=== PATIENT | female | born 1965 | race Caucasian/White ===

== ENCOUNTER 2016-11-27 15:55 | Emergency (ER) | payer MEDICAID ==
[~2016-11-27] VITALS: Ht 157.5 cm; Wt 106.6 kg
[~2016-11-27 15:55] MED LIST: AGM875T PO; ALB0.5V INH; ALBU0.8322 NEB; ALBU8.5HRX INH; ATOR10TA PO; BUDE6HFA INH; CELE-63; CEPH500C PO; CETI10TA17 PO; CLCX200C PO; DOCQLACE; DOCU-161 PO; DPH25C PO; ESCI20TA2 PO; ESCI20TA38 PO; EST1.25T PO; ESTR1TAB24; ESTR1TAB50 PO; EZET1TAB44 PO; FENO145T20; FERR-57 PO; FLT05NA16 NSEACH; FLUT16SP22 NS; GEMF600T3 PO; LANS30TA4 PO; LEVO750T24 PO; METO-354 PO; METO100T5 PO; METO10TA3 PO; METO5TAB2; METO5TAB2 PO; MNTL10T PO; MONT10TA24; NF-PREM2.5 PO; OMEG-105; OMEG-160 PO; PANT40TA PO; PNT40TEC PO; PRD10T PO; PRED20TA PO; SCR1T PO; TRAM50TA2 PO; ZIPR60CA6 PO; ZIPR80CA9 PO; ZPR80C PO
[2016-11-27] MEDS ORDERED: NS IV 1000 ML 1,000 ML IV ONE (16:09)
--- NOTE | 2016-11-27 16:18 | ED Abdominal Pain ---
General Chief Complaint: Abdominal/GI Problems Stated Complaint: STOMACH PAIN/CP Nursing Triage Note: pt reports constant abd pain that radiates, worsening with breathing, chest discomfort, nausea over the last 48 hours. states started a new stomach medication recently. pt brought in ems Sepsis Screen: No Definite Risk Source of Information: Patient Exam Limitations: No Limitations (MORENA CARTER MD) History of Present Illness Time Seen By Provider: 16:04 Initial Comments Here with report of abdominal pain that has been worse over the last several days and certainly over the last 48 hours. Also complains of lower chest discomfort when she takes a deep breath that has been persistent with breathing over the last 48 hours as well. She was started on a new medicine from the clinic but doesn't know what it is and states that she doesn't want to take it anymore because it is making her feel very bad. She is eating and drinking okay. Denies diarrhea or dysuria. Pain is to the lower abdomen bilateral and sharp and changes from side to side and radiates upward. Timing/Duration: 2-3 Days Severity/Quality: Moderate, Sharp Location: RLQ, LLQ Radiation: RUQ, LUQ Modifying Factors: Worsens With Breathing, Improves With Eating, Improves With Resting Associated Symptoms: No Back Pain, No Chest Pain, No Fever/Chills, No Nausea/ Vomiting, No Swelling/Mass in Abdomen, No Weakness (MORENA CARTER MD) Allergies and Home Medications Allergies Coded Allergies: aripiprazole (Verified Allergy, Mild, 05/22/09) influenza virus vacc,specific (Verified Allergy, Unknown, 12/29/13) sucralfate (Verified Allergy, Unknown, 12/29/13) Home Medications Albuterol Sulfate 2.5 Mg/3 Ml Solution 2.5 MG NEB Q4H PRN PRN WHEEZING (Reported ) Atorvastatin Calcium 10 Mg Tablet #30 10 MG PO DAILY Prescribed by: SHARON GARRETT on 08/05/15 1003 Budesonide/Formoterol Fumarate 10.2 Gm Hfa.aer.ad 2 PUFF INH BID PRN PRN SHORTNESS OF BREATH (Reported) Celecoxib 200 Mg Capsule 200 MG PO DAILY (Reported) Cetirizine Hcl 10 Mg Tablet 10 MG PO DAILY @ 1200 (Reported) Docusate Sodium 100 Mg Capsule 100 MG PO HS (Reported) Escitalopram Oxalate 20 Mg Tablet 20 MG PO DAILY (Reported) Metoclopramide Hcl 5 Mg Tablet 5 MG PO QID (Reported) Metoprolol Succinate 100 Mg Tab.sr.24h 100 MG PO DAILY (Reported) Montelukast Sodium 10 Mg Tablet 10 MG PO HS (Reported) [place]-3/Dha/Epa/Fish Oil 1 Each Capsule 1,000 MG PO BID (Reported) Pantoprazole Sodium 40 Mg Tablet.dr 40 MG PO DAILY (Reported) Ziprasidone Hcl 80 Mg Capsule 160 MG PO HS (Reported) TAKES 2 (80MG) CAPSULES AT BEDTIME Review of Systems Constitutional: see HPINo chills, fever EENTM: No Symptoms Reported Respiratory: See HPIDenies Shortness of Air, Denies Wheezing Cardiovascular: No Symptoms Reported Gastrointestinal: See HPI Abdominal PainDenies Nausea, Denies Rectal Bleeding , Denies Vomiting Genitourinary: No Symptoms Reported Musculoskeletal: no symptoms reported Skin: no symptoms reported Psychiatric/Neurological: No Symptoms Reported (MORENA CARTER MD) All Other Systems Reviewed Negative Unless Noted: Yes (MORENA CARTER MD) Past Kfcshwt-Svabse-Sqykxw Hx Patient Social History Alcohol Use: Denies Use Recreational Drug Use: No Smoking Status: Never a Smoker Former Smoker/When Quit: Nov 08, 1979 Recent Foreign Travel: No Contact w/Someone Who Travel: No Recent Infectious Disease Expo: No Recent Hopitalizations: No Physical Abuse Screen: No Sexual Abuse: No (MORENA CARTER MD) Immunizations Up To Date Tetanus Booster (TDap): Unknown Date of Pneumonia Vaccine: Nov 08, 2012 (MORENA CARTER MD) Seasonal Allergies Seasonal Allergies: No (MORENA CARTER MD) Surgeries HX Surgeries: Yes (I&D AFTER MISCARRIAGE, hiatal hernia repair) Surgeries: Abdominal, Gallbladder, Tonsillectomy, Vascular Surgery (MORENA CARTER MD) Respiratory Hx Respiratory Disorders: Yes Respiratory Disorders: Asthma, Chronic Bronchitis (MORENA CARTER MD) Cardiovascular Hx Cardiac Disorders: Yes (History CHF, "irregular heart beat") Cardiac Disorders: Hypertension (MORENA CARTER MD) Neurological Hx Neurological Disorders: Yes (MORENA CARTER MD) Reproductive System : No Hx Reproductive Disorders: No Female Reproductive Disorders: Menstrual Problems (MORENA CARTER MD) Genitourinary Hx Genitourinary Disorders: No Genitourinary Disorders: Kidney Infection, Bladder Infection (MORENA CARTER MD) Gastrointestinal Hx Gastrointestinal Disorders: Yes Gastrointestinal Disorders: Gastroesophageal Reflux (MORENA CARTER MD) Musculoskeletal Hx Musculoskeletal Disorders: Yes Musculoskeletal Disorders: Arthritis, Fractures (MORENA CARTER MD) Endocrine Hx Endocrine Disorders: No (MORENA CARTER MD) HEENT HX ENT Disorders: Yes (WEARS GLASSES, sinusitis) Loss of Vision: Bilateral Hearing Impairment: Denies (MORENA CARTER MD) Cancer Hx Cancer: No (MORENA CARTER MD) Psychosocial Hx Psychiatric Problems: Yes Behavioral Health Disorders: Anxiety, Depression (MORENA CARTER MD) Integumentary HX Skin/Integumentary Disorder: No (HAS SKIN DISEASE NOT SURE BREAKS OUT ONCE IN A WHILE ) (MORENA CARTER MD) Blood Transfusions Hx Blood Disorders: No Adverse Reaction to a Blood Tr: No (MORENA CARTER MD) Reviewed Nursing Assessment Reviewed/Agree w Nursing PMH: Yes (MORENA CARTER MD) Family Medical History Significant Family History: Heart Disease Family Medial History: Alcoholism Cancer Cataract Chest pain Congenital heart disease Congestive heart failure Dementia Family history: Allergy Family history: Alzheimer's disease Family history: Arthritis Family history: Asthma Family history: Cardiovascular disease Family history: Diabetes mellitus Family history: Glaucoma Family history: Hypertension Family history: Thyroid disorder Headache Heart disease History of - anemia History of - respiratory disease Kidney disease Myocardial infarction Psychotic disorder Stroke Visual impairment (MORENA CARTER MD) Family Medial History: Alcoholism Cancer Cataract Chest pain Congenital heart disease Congestive heart failure Dementia Family history: Allergy Family history: Alzheimer's disease Family history: Arthritis Family history: Asthma Family history: Cardiovascular disease Family history: Diabetes mellitus Family history: Glaucoma Family history: Hypertension Family history: Thyroid disorder Headache Heart disease History of - anemia History of - respiratory disease Kidney disease Myocardial infarction Psychotic disorder Stroke Visual impairment No Family History of: Abdominal aortic aneurysm [place]'s disease Aphasia Cystic fibrosis Dysphagia Family history: Breast disease Family history: Coronary thrombosis Family history: Gastrointestinal disease Family history: Osteoporosis Hearing loss Hereditary disease History of - disorder History of drug abuse Human immunodeficiency virus (HIV) seropositivity Hypercholesterolemia Infertile Malignant neoplasm of lung Parkinson's disease Prostate cancer Seizure disorder Tuberculosis (AIXA GONZALEZ) Physical Exam Vital Signs (AIXA GONZALEZ) Vital Signs Capillary Refill : Less Than 3 Seconds (MORENA CARTER MD) General Appearance: WD/WN no apparent distress HEENT: PERRL/EOMI pharynx normal Neck: full range of motion supple Respiratory: lungs clear normal breath sounds Cardiovascular: regular rate, rhythm no murmur Gastrointestinal: non tender soft Extremities: non-tender no pedal edema Back: normal inspection no CVA tenderness no vertebral tenderness Neurologic/Psychiatric: alert oriented x 3 Skin: normal color warm/dry (MORENA CARTER MD) Progress/Results/Core Measures Results/Orders Lab Results Laboratory Tests Test 11/27/16 16:19 11/27/16 17:51 Range/Units Urine Bacteria NONE /HPF Urine Bilirubin NEGATIVE NEGATIVE Urine Casts NONE /LPF Urine Clarity CLEAR Urine Color YELLOW Urine Crystals NONE /LPF Urine Culture Indicated NO Urine Glucose (UA) NEGATIVE NEGATIVE Urine Ketones NEGATIVE NEGATIVE Urine Leukocyte Esterase 2+ H NEGATIVE Urine Mucus NEGATIVE /LPF Urine Nitrite NEGATIVE NEGATIVE Urine Protein 2+ H NEGATIVE Urine RBC NONE /HPF Urine RBC (Auto) NEGATIVE NEGATIVE Urine Specific [place] 1.010 L 1.016-1.022 Urine Squamous Epithelial Cells 5-10 /HPF Urine Urobilinogen NORMAL NORMAL MG/DL Urine WBC 2-5 /HPF Urine pH 7 5-9 Alanine Aminotransferase (ALT/SGPT) 100 H 0-55 U/L Albumin 3.5 3.2-4.5 G/DL Alkaline Phosphatase 428 H 40-136 U/L Anion Gap 11 5-14 MMOL/L Aspartate Amino Transf (AST/SGOT) 82 H 5-34 U/L BUN/Creatinine Ratio 11 Basophils # (Auto) 0.0 0.0-0.1 10^3/uL Basophils (%) (Auto) 0 0-10 % Blood Urea Nitrogen 8 7-18 MG/DL Calcium Level 8.5 8.5-10.1 MG/DL Carbon Dioxide Level 21 21-32 MMOL/L Chloride Level 108 H 98-107 MMOL/L Creatinine 0.72 0.60-1.30 MG/DL Eosinophils # (Auto) 0.2 0.0-0.3 10^3/uL Eosinophils (%) (Auto) 3 0-10 % Estimat Glomerular Filtration Rate > 60 Glucose Level 125 H 70-105 MG/DL Hematocrit 41 35-52 % Hemoglobin 13.6 11.5-16.0 G/DL Lipase 82 H 8-78 U/L Lymphocytes # (Auto) 2.7 1.0-4.0 X 10^3 Lymphocytes (%) (Auto) 41 12-44 % Magnesium Level 1.7 L 1.8-2.4 MG/DL Mean Corpuscular Hemoglobin 30 25-34 PG Mean Corpuscular Hemoglobin Concent 34 32-36 G/DL Mean Corpuscular Volume 88 80-99 FL Mean Platelet Volume 10.6 H 7.4-10.4 FL Monocytes # (Auto) 0.4 0.0-1.0 X 10^3 Monocytes (%) (Auto) 7 0-12 % Neutrophils # (Auto) 3.3 1.8-7.8 X 10^3 Neutrophils (%) (Auto) 50 42-75 % Platelet Count 265 130-400 10^3/uL Potassium Level 3.7 3.6-5.0 MMOL/L Red Blood Count 4.59 4.35-5.85 10^6/uL Red Cell Distribution Width 12.9 10.0-14.5 % Sodium Level 140 135-145 MMOL/L Total Bilirubin 0.5 0.1-1.0 MG/DL Total Protein 7.2 6.4-8.2 G/DL Troponin I < 0.30 <0.30 NG/ML White Blood Count 6.7 4.3-11.0 10^3/uL (AIXA GONZALEZ) Lab Results Laboratory Tests Test 11/27/16 16:19 11/27/16 17:51 Range/Units Urine Bacteria NONE /HPF Urine Bilirubin NEGATIVE NEGATIVE Urine Casts NONE /LPF Urine Clarity CLEAR Urine Color YELLOW Urine Crystals NONE /LPF Urine Culture Indicated NO Urine Glucose (UA) NEGATIVE NEGATIVE Urine Ketones NEGATIVE NEGATIVE Urine Leukocyte Esterase 2+ H NEGATIVE Urine Mucus NEGATIVE /LPF Urine Nitrite NEGATIVE NEGATIVE Urine Protein 2+ H NEGATIVE Urine RBC NONE /HPF Urine RBC (Auto) NEGATIVE NEGATIVE Urine Specific [place] 1.010 L 1.016-1.022 Urine Squamous Epithelial Cells 5-10 /HPF Urine Urobilinogen NORMAL NORMAL MG/DL Urine WBC 2-5 /HPF Urine pH 7 5-9 Alanine Aminotransferase (ALT/SGPT) 100 H 0-55 U/L Albumin 3.5 3.2-4.5 G/DL Alkaline Phosphatase 428 H 40-136 U/L Anion Gap 11 5-14 MMOL/L Aspartate Amino Transf (AST/SGOT) 82 H 5-34 U/L BUN/Creatinine Ratio 11 Basophils # (Auto) 0.0 0.0-0.1 10^3/uL Basophils (%) (Auto) 0 0-10 % Blood Urea Nitrogen 8 7-18 MG/DL Calcium Level 8.5 8.5-10.1 MG/DL Carbon Dioxide Level 21 21-32 MMOL/L Chloride Level 108 H 98-107 MMOL/L Creatinine 0.72 0.60-1.30 MG/DL Eosinophils # (Auto) 0.2 0.0-0.3 10^3/uL Eosinophils (%) (Auto) 3 0-10 % Estimat Glomerular Filtration Rate > 60 Glucose Level 125 H 70-105 MG/DL Hematocrit 41 35-52 % Hemoglobin 13.6 11.5-16.0 G/DL Lipase 82 H 8-78 U/L Lymphocytes # (Auto) 2.7 1.0-4.0 X 10^3 Lymphocytes (%) (Auto) 41 12-44 % Magnesium Level 1.7 L 1.8-2.4 MG/DL Mean Corpuscular Hemoglobin 30 25-34 PG Mean Corpuscular Hemoglobin Concent 34 32-36 G/DL Mean Corpuscular Volume 88 80-99 FL Mean Platelet Volume 10.6 H 7.4-10.4 FL Monocytes # (Auto) 0.4 0.0-1.0 X 10^3 Monocytes (%) (Auto) 7 0-12 % Neutrophils # (Auto) 3.3 1.8-7.8 X 10^3 Neutrophils (%) (Auto) 50 42-75 % Platelet Count 265 130-400 10^3/uL Potassium Level 3.7 3.6-5.0 MMOL/L Red Blood Count 4.59 4.35-5.85 10^6/uL Red Cell Distribution Width 12.9 10.0-14.5 % Sodium Level 140 135-145 MMOL/L Total Bilirubin 0.5 0.1-1.0 MG/DL Total Protein 7.2 6.4-8.2 G/DL Troponin I < 0.30 <0.30 NG/ML White Blood Count 6.7 4.3-11.0 10^3/uL (MORENA CARTER MD) Medications Given in ED (AIXA GONZALEZ) Medications Given in ED Current Medications Medications Dose Ordered Sig/Elias Route Start Time Stop Time Status Last Admin Dose Admin Sodium Chloride 1,000 ml @ 0 mls/hr Q0M ONCE IV 11/27/16 16:09 11/27/16 16:11 DC 11/27/16 17:11 0 MLS/HR (MORENA CARTER MD) Vital Signs/I&O (AIXA GONZALEZ) Blood Pressure Mean: 128 Progress Note : Progress Note Seen and evaluated. IV by EMS. Labs, chest x-ray, EKG and normal saline 1 L bolus ordered. Monitor patient. 1900: No significant findings currently. We will get CT abdomen and pelvis to rule out intra-abdominal pathology. (MORENA CARTER MD) ECG Initial ECG Impression Date: Nov 27, 2016 Initial ECG Impression Time: 18:44 Initial ECG Rate: 63 Initial ECG Rhythm: Normal Sinus Comment Sinus rhythm with normal axis. No evidence of ST elevation FL. Similar to previous08/05/15. Interpreted by me. (MORENA CARTER MD) Diagnostic Imaging Diagonstic Imaging: Xray Plain Films/CT/US/NM/MRI: chest Comments NAME: VIJAY [facility]KS [facility] REC#: [id number] PT STATUS: REG ER : 1965 PHYSICIAN: MORENA CARTER MD ADMIT DATE: 11/27/16/ER Signed Date of Exam: 11/27/16 CHEST 1 VIEW, AP/PA ONLY PROCEDURE: Chest 1 view, AP/PA only. INDICATION: Chest pain. COMPARISON: 09/30/2015. FINDINGS: No focal airspace disease in the visualized lungs. Please note that the posterior lower lobes are poorly evaluated by portable radiography. No pleural effusion or pneumothorax. Stable cardiomediastinal silhouette, with mild tortuosity of the ascending aorta resulting in convex lateral border of the mediastinum. IMPRESSION: No acute cardiopulmonary process by portable radiography. Dictated by: Dictated on workstation # [id number] Dict: 11/27/16 1703 Trans: 11/27/16 1717 [facility] [id number] Interpreted by: ANGI PERALTA MD Electronically signed by:ANGI PERALTA MD 11/27/16 3217 (MORENA CARTER MD) Diagonstic Imaging: CT Plain Films/CT/US/NM/MRI: abdomen, pelvis Comments FINDINGS: The liver demonstrates mild fatty infiltration. No acute abnormality is appreciated. There is evidence of previous cholecystectomy. The spleen is unremarkable. The pancreas, adrenal glands demonstrate no acute abnormality. The kidneys are unremarkable. There is no ascites or free air within the abdomen. There is diffuse diverticular disease. No acute diverticulitis is appreciated. The stomach is filled with debris. There are findings of mild constipation. The appendix is unremarkable. Within the visualized lung bases, no acute abnormality is appreciated. The osseous structures demonstrate no evidence for acute abnormality. Mild degenerative findings noted in the lower lumbar spine. IMPRESSION: 1. No acute process in the abdomen or pelvis with incidental findings as discussed above. Diverticulosis is noted but no evidence for acute diverticulitis seen at this time. Dictated on workstation # [id number] Reviewed: Reviewed by Me (radiology report reviewed by me) (AIXA GONZALEZ) Departure Communication Progress Notes Patient seen and evaluated. All laboratory and diagnostic findings discussed with the patient. Patient reports feeling better at this time with medications given. Plan for discharge to home. Patient instructed to follow-up with her primary care physician for recheck as an outpatient and to call their office for appointment time. Return precautions were discussed with the patient as described in the discharge instructions of this report. Patient voices understanding and agrees with the treatment plan. Patient seen and evaluated with Dr. Carter. (AIXA GONZALEZ) Impression Impression: Primary Impression: Abdominal pain Disposition: HOME, SELF-CARE Condition: Improved Departure-Patient Inst. Decision time for Depature: 20:08 (AIXA GONZALEZ) Referrals: LEIGH ANN LOW DO (PCP) Primary Care Physician KRYSTYNA CHANCE (Family) Primary Care Physician Patient Instructions: Acute Abdomen (Belly Pain), Adult (DC) Add. Discharge Instructions: All discharge instructions reviewed with patient and/or family. Voiced understanding. Continue usual home medications. Follow up with Rehana harper APRN for discussion of new medication. Take the new medication bottle with you at the time of appointment. Call Wednesday morning to make an appointment. Drink plenty of fluids. Return to the emergency department for worsened pain, vomiting, vomiting blood, rectal bleeding, abdominal swelling, fever, chest pain , or any other concerns. MORENA CARTER MD Nov 27, 2016 16:18 AIXA GONZALEZ Nov 27, 2016 20:09 Interpreted by: ANGI PERALTA MD Electronically signed by:ANGI PERALTA MD 11/27/16 7526 (MORENA CARTER MD) Diagonstic Imaging: CT Plain Films/CT/US/NM/MRI: abdomen, pelvis Comments FINDINGS: The liver demonstrates mild fatty infiltration. No acute abnormality is appreciated. There is evidence of previous cholecystectomy. The spleen is unremarkable. The pancreas, adrenal glands demonstrate no acute abnormality. The kidneys are unremarkable. There is no ascites or free air within the abdomen. There is diffuse diverticular disease. No acute diverticulitis is appreciated. The stomach is filled with debris. There are findings of mild constipation. The appendix is unremarkable. Within the visualized lung bases, no acute abnormality is appreciated. The osseous structures demonstrate no evidence for acute abnormality. Mild degenerative findings noted in the lower lumbar spine. IMPRESSION: 1. No acute process in the abdomen or pelvis with incidental findings as discussed above. Diverticulosis is noted but no evidence for acute diverticulitis seen at this time. Dictated on workstation # [id number] Reviewed: Reviewed by Me (radiology report reviewed by me) (AIXA GONZALEZ) Departure Impression Impression: Primary Impression: Abdominal pain Disposition: HOME, SELF-CARE Condition: Improved Departure-Patient Inst. Decision time for Depature: 20:08 (AIXA GONZALEZ) Referrals: LEIGH ANN LOW DO (PCP) Primary Care Physician KRYSTYNA CHANCE (Family) Primary Care Physician Patient Instructions: Acute Abdomen (Belly Pain), Adult (DC) Add. Discharge Instructions: All discharge instructions reviewed with patient and/or family. Voiced understanding. Continue usual home medications. Follow up with Rehana harper APRN for discussion of new medication. Take the new medication bottle with you at the time of appointment. Call Wednesday morning to make an appointment. Drink plenty of fluids. Return to the emergency department for worsened pain, vomiting, vomiting blood, rectal bleeding, abdominal swelling, fever, chest pain , or any other concerns. MORENA CARTER MD Nov 27, 2016 16:18 AIXA GONZALEZ Nov 27, 2016 20:09
[2016-11-27 16:25] LABS: BILIRUBIN,URINE NEGATIVE (NEGATIVE); KETONES,URINE NEGATIVE (NEGATIVE); LEUKOCYTE ESTERASE ,URINE 2+ (NEGATIVE); NITRITE,URINE NEGATIVE (NEGATIVE); PH,URINE 7 (5-9); PROTEIN,URINE 2+ (NEGATIVE); UROBILINOGEN,URINE NORMAL (NORMAL)
--- NOTE | 2016-11-27 17:07 | Diagnostic Imaging Report ---
PROCEDURE: Chest 1 view, AP/PA only. INDICATION: Chest pain. COMPARISON: 09/30/2015. FINDINGS: No focal airspace disease in the visualized lungs. Please note that the posterior lower lobes are poorly evaluated by portable radiography. No pleural effusion or pneumothorax. Stable cardiomediastinal silhouette, with mild tortuosity of the ascending aorta resulting in convex lateral border of the mediastinum. IMPRESSION: No acute cardiopulmonary process by portable radiography. Dictated by: Dictated on workstation # [id number]
[2016-11-27 18:05] LABS: BASOPHILS % (AUTO) 0 % (0-10); EOSINOPHILS # (AUTO) 0.2 10^3/uL (0.0-0.3); EOSINOPHILS % (AUTO) 3 % (0-10); LYMPHOCYTES # (AUTO) 2.7 X 10^3 (1.0-4.0); LYMPHOCYTES % (AUTO) 41 % (12-44); MEAN CORPUSCULAR HEMOGLOBIN 30 PG (25-34); MEAN CORPUSCULAR HGB CONC 34 G/DL (32-36); MEAN CORPUSCULAR VOLUME 88 FL (80-99); MEAN PLATELET VOLUME 10.6 FL (7.4-10.4); MONOCYTES # (AUTO) 0.4 X 10^3 (0.0-1.0); MONOCYTES % (AUTO) 7 % (0-12); NEUTROPHILS # (AUTO) 3.3 X 10^3 (1.8-7.8); NEUTROPHILS % (AUTO) 50 % (42-75); PLATELET COUNT 265 10^3/uL (130-400); RED BLOOD COUNT 4.59 10^6/uL (4.35-5.85); RED CELL DISTRIBUTION WIDTH 12.9 % (10.0-14.5); WHITE BLOOD COUNT 6.7 10^3/uL (4.3-11.0)
[2016-11-27 18:26] LABS: ALANINE AMINOTRANSFERASE 100 U/L (0-55); ALBUMIN 3.5 G/DL (3.2-4.5); ANION GAP 11 MMOL/L (5-14); ASPARTATE AMINO TRANSFERASE 82 U/L (5-34); BILIRUBIN,TOTAL 0.5 MG/DL (0.1-1.0); BLOOD UREA NITROGEN 8 MG/DL (7-18); BUN/CREATININE RATIO 11; CALCIUM 8.5 MG/DL (8.5-10.1); CARBON DIOXIDE 21 MMOL/L (21-32); CHLORIDE 108 MMOL/L (98-107); CREATININE SERUM 0.72 MG/DL (0.60-1.30); GFR ESTIMATED > 60; GLUCOSE 125 MG/DL (70-105); LIPASE 82 U/L (8-78); MAGNESIUM 1.7 MG/DL (1.8-2.4); POTASSIUM 3.7 MMOL/L (3.6-5.0); SODIUM 140 MMOL/L (135-145); TOTAL PROTEIN 7.2 G/DL (6.4-8.2)
[2016-11-27 18:32] LABS: TROPONIN I < 0.30 NG/ML (<0.30)
[2016-11-27] MEDS ORDERED: IOHEXOL 350 MG/ML 100 ML (OMNIPAQUE 350) VIAL IV ONE (19:15)
[2016-11-27] MEDS ORDERED: NS 100 ML (IVPB) BAG IV ONE (19:15)
--- NOTE | 2016-11-27 19:35 | Diagnostic Imaging Report ---
PROCEDURE: CT abdomen and pelvis with contrast. TECHNIQUE: Multiple contiguous axial images were obtained through the abdomen and pelvis after administration of intravenous contrast. INDICATION: Abdomen pain with dry heaving for the last 48 hours. EXAMINATION: CT abdomen and pelvis with contrast 11/27/2016. No priors available for comparison. FINDINGS: The liver demonstrates mild fatty infiltration. No acute abnormality is appreciated. There is evidence of previous cholecystectomy. The spleen is unremarkable. The pancreas, adrenal glands demonstrate no acute abnormality. The kidneys are unremarkable. There is no ascites or free air within the abdomen. There is diffuse diverticular disease. No acute diverticulitis is appreciated. The stomach is filled with debris. There are findings of mild constipation. The appendix is unremarkable. Within the visualized lung bases, no acute abnormality is appreciated. The osseous structures demonstrate no evidence for acute abnormality. Mild degenerative findings noted in the lower lumbar spine. IMPRESSION: 1. No acute process in the abdomen or pelvis with incidental findings as discussed above. Diverticulosis is noted but no evidence for acute diverticulitis seen at this time. Dictated by: Dictated on workstation # [id number]
[2016-11-27 20:41] VITALS: BP 161/106
== END 2016-11-27 20:41 | disposition home or self-care (01) ==
LOC: EDUNIT# 15:55 → ER 15:56
DX: R10.30 Lower abdominal pain, unspecified (principal); R07.81 Pleurodynia; K57.30 Diverticulosis of large intestine without perforation or abscess without bleeding; I10 Essential (primary) hypertension; Z79.899 Other long term (current) drug therapy
CPT/HCPCS: 36415; 71010; 74177; 80053; 81000; 83690; 83735; 84484; 85025; 93005; 96360; 96361

== ENCOUNTER 2017-06-08 03:38 | Emergency (ER) | payer MEDICAID ==
[~2017-06-08] VITALS: Ht 157.5 cm; Wt 101.6 kg
[2017-06-08] MEDS ORDERED: OMEP40CA36 (03:51)
[2017-06-08] MEDS ORDERED: LEVO25TA5 (03:51)
[2017-06-08] MEDS ORDERED: FLUT9.9S NSEACH (04:31)
--- NOTE | 2017-06-08 04:31 | ED Respiratory ---
General Chief Complaint: Respiratory Problems Stated Complaint: SOA Nursing Triage Note: To ED 8 per [facility], pt notified 911 of difficulty breathing. Pt reports she is having trouble getting air thru nose/upper airway r/t tissue or something. Pt has a slight hoarseness/nasally sound. Source: patient, old records Exam Limitations: no limitations History of Present Illness Time seen by provider: 03:40 Initial Comments This 52-year-old woman presents to the emergency room via EMS with complaints of congestion and resulting in sensation of difficulty breathing. She states it feels like she has tissue obstructing her upper airway. She describes soldering to breathing. She has otherwise been healthy recently and denies fever or other symptoms. EMS reports vital signs are stable on room air. Allergies and Home Medications Allergies Coded Allergies: aripiprazole (Verified Allergy, Mild, 05/22/09) influenza virus vacc,specific (Verified Allergy, Unknown, 12/29/13) sucralfate (Verified Allergy, Unknown, 12/29/13) Home Medications Albuterol Sulfate 2.5 Mg/3 Ml Solution, 2.5 MG NEB Q4H PRN for WHEEZING, ( Reported) Atorvastatin Calcium 10 Mg Tablet, 10 MG PO DAILY, #30 Ref 4 Prescribed by: SHARON GARRETT on 08/05/15 1003 Budesonide/Formoterol Fumarate 10.2 Gm Hfa.aer.ad, 2 PUFF INH BID PRN for SHORTNESS OF BREATH, (Reported) Celecoxib 200 Mg Capsule, 200 MG PO DAILY, (Reported) Cetirizine Hcl 10 Mg Tablet, 10 MG PO DAILY @ 1200, (Reported) Docusate Sodium 100 Mg Capsule, 100 MG PO HS, (Reported) Escitalopram Oxalate 20 Mg Tablet, 20 MG PO DAILY, (Reported) Fluticasone Propionate 9.9 Ml [place].susp, 2 SPRAY NSEACH DAILY, #1 Prescribed by: JOJO HARRISON on 06/08/17 0431 Levothyroxine Sodium 25 Mcg Tablet, #30 (Reported) Metoclopramide Hcl 5 Mg Tablet, 5 MG PO QID, (Reported) Metoprolol Succinate 100 Mg Tab.sr.24h, 100 MG PO DAILY, (Reported) Montelukast Sodium 10 Mg Tablet, 10 MG PO HS, (Reported) [place]-3/Dha/Epa/Fish Oil 1 Each Capsule, 1,000 MG PO BID, (Reported) Omeprazole 40 Mg Capsule.dr, #30 (Reported) Pantoprazole Sodium 40 Mg Tablet.dr, 40 MG PO DAILY, (Reported) Ziprasidone Hcl 80 Mg Capsule, 160 MG PO HS, (Reported) TAKES 2 (80MG) CAPSULES AT BEDTIME Constitutional: no symptoms reported EENTM: see HPI Respiratory: see HPI Cardiovascular: no symptoms reported Gastrointestinal: no symptoms reported Genitourinary: no symptoms reported : No Musculoskeletal: no symptoms reported Skin: no symptoms reported Psychiatric/Neurological: No Symptoms Reported Hematologic/Lymphatic: No Symptoms Reported Immunological/Allergic: no symptoms reported Past Jekonpo-Sstepw-Tvxsif Hx Patient Social History Alcohol Use: Occasionally Uses Recreational Drug Use: No Smoking Status: Former Smoker Former Smoker/When Quit: Nov 08, 1979 2nd Hand Smoke Exposure: No Recent Foreign Travel: No Contact w/Someone Who Travel: No Recent Infectious Disease Expo: No Recent Hopitalizations: No Immunizations Up To Date Tetanus Booster (TDap): Unknown Date of Pneumonia Vaccine: Nov 08, 2012 Seasonal Allergies Seasonal Allergies: No Surgeries HX Surgeries: Yes (I&D AFTER MISCARRIAGE, hiatal hernia repair) Surgeries: Abdominal, Gallbladder, Tonsillectomy, Vascular Surgery Respiratory Hx Respiratory Disorders: Yes Respiratory Disorders: Asthma, Chronic Bronchitis Cardiovascular Hx Cardiac Disorders: Yes (History CHF, "irregular heart beat") Cardiac Disorders: Hypertension Neurological Hx Neurological Disorders: Yes Reproductive System Hx Reproductive Disorders: No Female Reproductive Disorders: Menstrual Problems Genitourinary Hx Genitourinary Disorders: Yes Genitourinary Disorders: Kidney Infection, Bladder Infection Gastrointestinal Hx Gastrointestinal Disorders: Yes Gastrointestinal Disorders: Gastroesophageal Reflux Musculoskeletal Hx Musculoskeletal Disorders: Yes Musculoskeletal Disorders: Arthritis, Fractures Endocrine Hx Endocrine Disorders: No HEENT HX ENT Disorders: Yes (WEARS GLASSES, sinusitis) Loss of Vision: Bilateral Hearing Impairment: Denies Cancer Hx Cancer: No Psychosocial Hx Psychiatric Problems: Yes Behavioral Health Disorders: Anxiety, Schizophrenia, Depression Integumentary HX Skin/Integumentary Disorder: No (HAS SKIN DISEASE NOT SURE BREAKS OUT ONCE IN A WHILE ) Blood Transfusions Hx Blood Disorders: No Adverse Reaction to a Blood Tr: No Family Medical History Significant Family History: Heart Disease Family Medial History: Alcoholism Cancer Cataract Chest pain Congenital heart disease Congestive heart failure Dementia Family history: Allergy Family history: Alzheimer's disease Family history: Arthritis Family history: Asthma Family history: Cardiovascular disease Family history: Diabetes mellitus Family history: Glaucoma Family history: Hypertension Family history: Thyroid disorder Headache Heart disease History of - anemia History of - respiratory disease Kidney disease Myocardial infarction Psychotic disorder Stroke Visual impairment No Family History of: Abdominal aortic aneurysm Elmore's disease Aphasia Cystic fibrosis Dysphagia Family history: Breast disease Family history: Coronary thrombosis Family history: Gastrointestinal disease Family history: Osteoporosis Hearing loss Hereditary disease History of - disorder History of drug abuse Human immunodeficiency virus (HIV) seropositivity Hypercholesterolemia Infertile Malignant neoplasm of lung Parkinson's disease Prostate cancer Seizure disorder Tuberculosis Physical Exam Vital Signs Vital Sign - Last 12Hours 06/08/17 03:38 Temp 97.6 Pulse 49 Resp 20 B/P (MAP) 131/50 Pulse Ox 98 O2 Delivery Room Air Capillary Refill : Less Than 3 Seconds General Appearance: WD/WN, no apparent distress, obese HEENT: PERRL/EOMI, normal ENT inspection, pharynx normal Respiratory: lungs clear, normal breath sounds, no respiratory distress, no accessory muscle use, other (brief sonorant breath sounds) Cardiovascular: regular rate, rhythm, no edema, no murmur Gastrointestinal: non tender, soft Extremities: normal inspection, no pedal edema Neurologic/Psychiatric: delicatessen clerk II-XII nml as tested, no motor/sensory deficits, alert, normal mood/affect, oriented x 3 Skin: normal color, warm/dry Progress/Results/Core Measures Results/Orders My Orders Orders - JOJO DA SILVA MD Chest Pa/Lat (2 View) (06/08/17 03:45) Vital Signs/I&O Vital Sign - Last 12Hours 06/08/17 06/08/17 03:38 04:43 Temp 97.6 97.6 Pulse 49 47 Resp 20 20 B/P (MAP) 131/50 Pulse Ox 98 96 O2 Delivery Room Air Room Air Blood Pressure Mean: 77 Progress Note : Progress Note Patient advised to try a decongestant nasal spray such as Flonase and to talk with her primary care provider about evaluating for sleep apnea given her body habitus. Diagnostic Imaging Diagonstic Imaging: Xray Plain Films/CT/US/NM/MRI: chest Comments Chest x-ray viewed by me. Report not yet available. No acute abnormalities appreciated. Departure Impression Impression: Primary Impression: Snoring Additional Impressions: Dyspnea Qualified Codes: R06.00 - Dyspnea, unspecified Congestion of nasal sinus Disposition: 01 HOME, SELF-CARE Condition: Improved Departure-Patient Inst. Decision time for Depature: 04:30 Referrals: LEIGH ANN LOW DO (PCP) Primary Care Physician KRYSTYNA CHANCE (Family) Primary Care Physician Patient Instructions: Shortness of Breath (Dyspnea) Add. Discharge Instructions: Try Flonase nasal spray for your congestion. If you have difficulty breathing at night due to snoring or shortness of air with lying flat, please see your primary care provider for further evaluation. Return to care if symptoms worsen. All discharge instructions reviewed with patient and/or family. Voiced understanding. Scripts Fluticasone Propionate (Flonase Allergy Relief) 9.9 Ml [place].susp 2 SPRAY NSEACH DAILY, #1 SPRAY Prov: JOJO DA SILVA MD 06/08/17 Copy Copies To 1: LEIGH ANN LOW JOSHUA T MD Jun 08, 2017 04:31
[2017-06-08 04:43] VITALS: BP 125/79
--- NOTE | 2017-06-08 06:46 | Diagnostic Imaging Report ---
PA and lateral chest at 4:06 AM. INDICATION: Chest pain. The heart size is at the upper limits of normal but stable when compared to 11/27/2016. The small area of increased density overlying the left upper lung seen previously is again evident and no different. This finding also seems stable when compared to 08/05/2015. The lungs are generally clear. There is no evidence for failure, pneumonia, or for a pleural effusion. The mediastinum is not widened. The osseous structures are intact. IMPRESSION: There is no evidence for active disease. Dictated by: Dictated on workstation # [id number]
== END 2017-06-08 04:43 | disposition home or self-care (01) ==
LOC: EDUNIT# 03:38 → ER 03:40
DX: R09.81 Nasal congestion (principal); R06.00 Dyspnea, unspecified; R06.83 Snoring; J45.909 Unspecified asthma, uncomplicated; I11.0 Hypertensive heart disease with heart failure; I50.9 Heart failure, unspecified; K21.9 Gastro-esophageal reflux disease without esophagitis; M19.90 Unspecified osteoarthritis, unspecified site; F41.9 Anxiety disorder, unspecified; F32.9 Major depressive disorder, single episode, unspecified; F20.9 Schizophrenia, unspecified; Z82.49 Family history of ischemic heart disease and other diseases of the circulatory system; Z87.448 Personal history of other diseases of urinary system; Z87.891 Personal history of nicotine dependence; Z87.19 Personal history of other diseases of the digestive system; Z90.89 Acquired absence of other organs
CPT/HCPCS: 71020; 99283

== ENCOUNTER 2018-03-04 20:45 | Emergency (ER) | payer MEDICAID ==
[~2018-03-04] VITALS: Ht 160 cm; Wt 115.2 kg
[~2018-03-04 20:45] MED LIST changes: +FLUT9.9S NSEACH; +LEVO25TA5; +OMEP40CA36
--- NOTE | 2018-03-04 20:57 | ED Psychosocial ---
General Stated Complaint: DROWSY Source: patient Exam Limitations: no limitations History of Present Illness Date Seen by Provider: Mar 04, 2018 Time Seen by Provider: 20:54 Initial Comments To ER per EMS from home with reports of a gas smell in her apartment and being unusually fatigued. Fire department arrived on scene and was unable to identify any gas leak./These symptoms began shortly after taking her evening dose of trazodone which was increased today. This was her first dose of the higher dosage trazodone. She now feels tired. Timing/Duration: just prior to arrival Severity: moderate Allergies and Home Medications Allergies Coded Allergies: aripiprazole (Verified Allergy, Mild, 05/22/09) influenza virus vacc,specific (Verified Allergy, Unknown, 12/29/13) sucralfate (Verified Allergy, Unknown, 12/29/13) Home Medications Albuterol Sulfate 2.5 Mg/3 Ml Solution, 2.5 MG NEB Q4H PRN for WHEEZING, ( Reported) Atorvastatin Calcium 10 Mg Tablet, 10 MG PO DAILY Prescribed by: SHARON GARRETT on 08/05/15 1003 Budesonide/Formoterol Fumarate 10.2 Gm Hfa.aer.ad, 2 PUFF INH BID PRN for SHORTNESS OF BREATH, (Reported) Celecoxib 200 Mg Capsule, 200 MG PO DAILY, (Reported) Cetirizine Hcl 10 Mg Tablet, 10 MG PO DAILY @ 1200, (Reported) Docusate Sodium 100 Mg Capsule, 100 MG PO HS, (Reported) Escitalopram Oxalate 20 Mg Tablet, 20 MG PO DAILY, (Reported) Fluticasone Propionate 9.9 Ml [place].susp, 2 SPRAY NSEACH DAILY Prescribed by: JOJO HARRISON on 06/08/17 0431 Metoclopramide Hcl 5 Mg Tablet, 5 MG PO QID, (Reported) Metoprolol Succinate 100 Mg Tab.sr.24h, 100 MG PO DAILY, (Reported) Montelukast Sodium 10 Mg Tablet, 10 MG PO HS, (Reported) [place]-3/Dha/Epa/Fish Oil 1 Each Capsule, 1,000 MG PO BID, (Reported) Pantoprazole Sodium 40 Mg Tablet.dr, 40 MG PO DAILY, (Reported) Ziprasidone Hcl 80 Mg Capsule, 160 MG PO HS, (Reported) TAKES 2 (80MG) CAPSULES AT BEDTIME Patient Home Medication List Home Medication List Reviewed: Yes Constitutional: see HPI EENTM: see HPI Respiratory: no symptoms reported Cardiovascular: no symptoms reported Genitourinary: no symptoms reported Musculoskeletal: see HPI Skin: no symptoms reported Psychiatric/Neurological: No Symptoms Reported Past Aokfmvt-Hrczre-Lbmwlb Hx Patient Social History Former Smoker, Quit: Nov 08, 1979 2nd Hand Smoke Exposure: No Recent Hopitalizations: No Immunizations Up To Date Tetanus Booster (TDap): Unknown Date of Pneumonia Vaccine: Nov 08, 2012 Seasonal Allergies Seasonal Allergies: No Past Medical History Surgeries: Yes (I&D AFTER MISCARRIAGE, HIATAL HERNIA SURGERY) Abdominal, Gallbladder, Tonsillectomy, Vascular Surgery Respiratory: Yes Asthma, Chronic Bronchitis Cardiac: Yes (CHF HX) Hypertension Neurological: Yes Reproductive Disorders: No Female Reproductive Disorders: Menstrual Problems Kidney Infection, Bladder Infection Gastrointestinal: Yes Gastroesophageal Reflux Musculoskeletal: Yes Arthritis, Fractures Endocrine: No Loss of Vision: Bilateral Hearing Impairment: Denies Cancer: No Psychosocial: Yes Anxiety, Schizophrenia, Depression Integumentary: No (HAS SKIN DISEASE NOT SURE BREAKS OUT ONCE IN A WHILE ) Blood Disorders: No Adverse Reaction/Blood Tranf: No Family Medical History Alcoholism Cancer Cataract Chest pain Congenital heart disease Congestive heart failure Dementia Family history: Allergy Family history: Alzheimer's disease Family history: Arthritis Family history: Asthma Family history: Cardiovascular disease Family history: Diabetes mellitus Family history: Glaucoma Family history: Hypertension Family history: Thyroid disorder Headache Heart disease History of - anemia History of - respiratory disease Kidney disease Myocardial infarction Psychotic disorder Stroke Visual impairment No Family History of: Abdominal aortic aneurysm Govind's disease Aphasia Cystic fibrosis Dysphagia Family history: Breast disease Family history: Coronary thrombosis Family history: Gastrointestinal disease Family history: Osteoporosis Hearing loss Hereditary disease History of - disorder History of drug abuse Human immunodeficiency virus (HIV) seropositivity Hypercholesterolemia Infertile Malignant neoplasm of lung Parkinson's disease Prostate cancer Seizure disorder Tuberculosis Heart Disease Physical Exam Vital Signs Vital Signs - First Documented 03/04/18 20:47 Temp 96.7 Pulse 59 Resp 18 B/P (MAP) 144/97 (113) Pulse Ox 96 O2 Delivery Room Air Capillary Refill : General Appearance: WD/WN, no apparent distress, obese, other (Alert talkative GCS 15. Vitals stable. Heart rate 58, oxygen saturation 97% on room air, blood pressure 144/97, respiratory rate 18.) HEENT: PERRL/EOMI, normal ENT inspection Neck: non-tender, full range of motion Respiratory: normal breath sounds, no respiratory distress, no accessory muscle use Gastrointestinal: normal bowel sounds, non tender, soft Neurologic/Psychiatric: alert Appearance/Memory: appropriate appearance, appropriate insight Skin: normal color, warm/dry Progress/Results/Core Measures Lab Results Laboratory Tests Test 03/04/18 21:16 Range/Units White Blood Count 8.3 4.3-11.0 10^3/uL Red Blood Count 4.85 4.35-5.85 10^6/uL Hemoglobin 14.2 11.5-16.0 G/DL Hematocrit 43 35-52 % Mean Corpuscular Volume 90 80-99 FL Mean Corpuscular Hemoglobin 29 25-34 PG Mean Corpuscular Hemoglobin Concent 33 32-36 G/DL Red Cell Distribution Width 13.6 10.0-14.5 % Platelet Count 276 130-400 10^3/uL Mean Platelet Volume 10.6 H 7.4-10.4 FL Neutrophils (%) (Auto) 54 42-75 % Lymphocytes (%) (Auto) 39 12-44 % Monocytes (%) (Auto) 6 0-12 % Eosinophils (%) (Auto) 1 0-10 % Basophils (%) (Auto) 0 0-10 % Neutrophils # (Auto) 4.4 1.8-7.8 X 10^3 Lymphocytes # (Auto) 3.2 1.0-4.0 X 10^3 Monocytes # (Auto) 0.5 0.0-1.0 X 10^3 Eosinophils # (Auto) 0.1 0.0-0.3 10^3/uL Basophils # (Auto) 0.0 0.0-0.1 10^3/uL Sodium Level 137 135-145 MMOL/L Potassium Level 3.8 3.6-5.0 MMOL/L Chloride Level 103 98-107 MMOL/L Carbon Dioxide Level 19 L 21-32 MMOL/L Anion Gap 15 H 5-14 MMOL/L Blood Urea Nitrogen 17 7-18 MG/DL Creatinine 1.05 0.60-1.30 MG/DL Estimat Glomerular Filtration Rate 54 BUN/Creatinine Ratio 16 Glucose Level 216 H 70-105 MG/DL Calcium Level 9.5 8.5-10.1 MG/DL My Orders Orders - ANDREZ PINK KICK BOXER Cbc With Automated Diff (03/04/18 20:58) Basic Metabolic Panel (03/04/18 20:58) Vital Signs/I&O 03/04/18 20:47 Temp 96.7 Pulse 59 Resp 18 B/P (MAP) 144/97 (113) Pulse Ox 96 O2 Delivery Room Air Departure Impression Primary Impression: Medication side effect Disposition: HOME, SELF-CARE Condition: Stable Departure-Patient Inst. Decision time for Depature: 20:56 Referrals: LEIGH ANN LOW DO (PCP) Primary Care Physician KRYSTYNA CHANCE (Family) Primary Care Physician Patient Instructions: NO INSTRUCTIONS GIVEN Add. Discharge Instructions: 1. Follow-up with her doctor next week 2. Return to ER for any concerns ANDREZ PINK KICK BOXER Mar 04, 2018 20:57
[2018-03-04 21:24] LABS: BASOPHILS % (AUTO) 0 % (0-10); EOSINOPHILS # (AUTO) 0.1 10^3/uL (0.0-0.3); EOSINOPHILS % (AUTO) 1 % (0-10); HEMATOCRIT 43 % (35-52); HEMOGLOBIN 14.2 G/DL (11.5-16.0); LYMPHOCYTES # (AUTO) 3.2 X 10^3 (1.0-4.0); LYMPHOCYTES % (AUTO) 39 % (12-44); MEAN CORPUSCULAR HEMOGLOBIN 29 PG (25-34); MEAN CORPUSCULAR HGB CONC 33 G/DL (32-36); MEAN CORPUSCULAR VOLUME 90 FL (80-99); MEAN PLATELET VOLUME 10.6 FL (7.4-10.4); MONOCYTES # (AUTO) 0.5 X 10^3 (0.0-1.0); MONOCYTES % (AUTO) 6 % (0-12); NEUTROPHILS # (AUTO) 4.4 X 10^3 (1.8-7.8); NEUTROPHILS % (AUTO) 54 % (42-75); PLATELET COUNT 276 10^3/uL (130-400); RED BLOOD COUNT 4.85 10^6/uL (4.35-5.85); RED CELL DISTRIBUTION WIDTH 13.6 % (10.0-14.5); WHITE BLOOD COUNT 8.3 10^3/uL (4.3-11.0)
[2018-03-04 21:40] LABS: CALCIUM 9.5 MG/DL (8.5-10.1); CREATININE SERUM 1.05 MG/DL (0.60-1.30); POTASSIUM 3.8 MMOL/L (3.6-5.0)
[2018-03-04 21:55] VITALS: BP 144/97
== END 2018-03-04 21:55 | disposition home or self-care (01) ==
LOC: EDUNIT# 20:45 → ER 20:46
DX: R53.83 Other fatigue (principal); T43.215A Adverse effect of selective serotonin and norepinephrine reuptake inhibitors, initial encounter; J45.909 Unspecified asthma, uncomplicated; I11.0 Hypertensive heart disease with heart failure; I50.9 Heart failure, unspecified; K21.9 Gastro-esophageal reflux disease without esophagitis; F41.9 Anxiety disorder, unspecified; F32.9 Major depressive disorder, single episode, unspecified; F20.9 Schizophrenia, unspecified; Z87.448 Personal history of other diseases of urinary system; Z82.49 Family history of ischemic heart disease and other diseases of the circulatory system; Z88.8 Allergy status to other drugs, medicaments and biological substances; Z88.7 Allergy status to serum and vaccine; Z79.51 Long term (current) use of inhaled steroids; Z87.891 Personal history of nicotine dependence; Z87.19 Personal history of other diseases of the digestive system; Z90.89 Acquired absence of other organs
CPT/HCPCS: 36415; 80048; 85025; 99283

== ENCOUNTER 2018-07-19 06:22 | Emergency (ER) | payer MEDICAID ==
[~2018-07-19] VITALS: Ht 160 cm; Wt 115.2 kg
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
[2018-07-19] MEDS ORDERED: LIDOCAINE 1% INJ 20 ML 20 ML VIAL ONE (06:45)
[2018-07-19] MEDS ORDERED: LIDOCAINE 1% INJ 20 ML 20 ML VIAL INJ ONE (07:00)
[2018-07-19] MEDS ORDERED: cefTRIAXone 1,000 MG/2.86 ml vial (IM ONLY) IM STA (07:01)
[2018-07-19] MEDS ORDERED: cefTRIAXone 1 GM/10 ML for IV (ROCEPHIN) IV ONE (07:05)
[2018-07-19] MEDS ORDERED: SULF1TAB35 PO (07:07)
[2018-07-19 07:30] VITALS: BP 128/79
== END 2018-07-19 07:30 | disposition home or self-care (01) ==
LOC: EDUNIT# 06:22 → ER 06:24
DX: L02.31 Cutaneous abscess of buttock (principal); F20.9 Schizophrenia, unspecified; J45.909 Unspecified asthma, uncomplicated; I11.0 Hypertensive heart disease with heart failure; I50.9 Heart failure, unspecified; K21.9 Gastro-esophageal reflux disease without esophagitis; F41.9 Anxiety disorder, unspecified; F32.9 Major depressive disorder, single episode, unspecified; Z87.448 Personal history of other diseases of urinary system; Z82.49 Family history of ischemic heart disease and other diseases of the circulatory system; Z88.8 Allergy status to other drugs, medicaments and biological substances; Z88.7 Allergy status to serum and vaccine; Z79.51 Long term (current) use of inhaled steroids; Z87.891 Personal history of nicotine dependence; Z87.59 Personal history of other complications of pregnancy, childbirth and the puerperium; Z98.890 Other specified postprocedural states; Z90.89 Acquired absence of other organs
CPT/HCPCS: 10060; 96372

== ENCOUNTER 2018-12-26 17:54 | Emergency (ER) | payer MEDICAID ==
[~2018-12-26] VITALS: Ht 157.5 cm; Wt 85.3 kg
[2018-12-26] MEDS ORDERED: ONDANSETRON 4 MG/2 ML (SDV) Z0FRAN IVP ONE (18:00)
[2018-12-26] MEDS ORDERED: NS IV 1000 ML 1,000 ML IV SCH (18:00)
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
[2018-12-26 18:14] LABS: BASOPHILS % (AUTO) 0 % (0-10); EOSINOPHILS % (AUTO) 1 % (0-10); HEMATOCRIT 38 % (35-52); LYMPHOCYTES # (AUTO) 1.6 X 10^3 (1.0-4.0); LYMPHOCYTES % (AUTO) 24 % (12-44); MEAN CORPUSCULAR HEMOGLOBIN 30 PG (25-34); MEAN CORPUSCULAR HGB CONC 32 G/DL (32-36); MEAN CORPUSCULAR VOLUME 93 FL (80-99); MONOCYTES # (AUTO) 0.5 X 10^3 (0.0-1.0); MONOCYTES % (AUTO) 8 % (0-12); NEUTROPHILS # (AUTO) 4.4 X 10^3 (1.8-7.8); NEUTROPHILS % (AUTO) 67 % (42-75); PLATELET COUNT 291 10^3/uL (130-400); RED CELL DISTRIBUTION WIDTH 14.1 % (10.0-14.5); WHITE BLOOD COUNT 6.6 10^3/uL (4.3-11.0)
[2018-12-26 18:22] LABS: BILIRUBIN,URINE NEGATIVE (NEGATIVE); CLARITY,URINE SLIGHTLY CLOUDY; COLOR,URINE YELLOW; GLUCOSE, URINE (UA) NEGATIVE (NEGATIVE); KETONES,URINE NEGATIVE (NEGATIVE); LEUKOCYTE ESTERASE ,URINE 1+ (NEGATIVE); NITRITE,URINE NEGATIVE (NEGATIVE); PH,URINE 6.5 (5-9); PROTEIN,URINE 3+ (NEGATIVE); UROBILINOGEN,URINE 1 MG/DL (NORMAL)
--- NOTE | 2018-12-26 18:27 | Diagnostic Imaging Report ---
CHEST PA/LAT (2 VIEW) Indication: Weakness, nausea and vomiting. Comparison: 06/08/2017 Findings: No focal pneumonic consolidation, pleural effusion or pneumothorax. Borderline cardiomegaly is unchanged. Normal pulmonary vasculature. Impression: No acute cardiopulmonary process. Dictated by: Dictated on workstation # [id number]
[2018-12-26 18:29] LABS: BACTERIA,URINE NEGATIVE /HPF; RBC,URINE 0-2 /HPF; SQUAMOUS EPITHELIAL CELL,UR 0-2 /HPF; WBC,URINE 0-2 /HPF
[2018-12-26 18:38] LABS: ALANINE AMINOTRANSFERASE 236 U/L (0-55); ALBUMIN 3.3 GM/DL (3.2-4.5); ALKALINE PHOSPHATASE 1251 U/L (40-136); BILIRUBIN,TOTAL 3.8 MG/DL (0.1-1.0); BUN/CREATININE RATIO 11; CALCIUM 10.4 MG/DL (8.5-10.1); CARBON DIOXIDE 17 MMOL/L (21-32); CHLORIDE 99 MMOL/L (98-107); GFR ESTIMATED > 60; GLUCOSE 172 MG/DL (70-105); LIPASE 111 U/L (8-78); POTASSIUM 3.6 MMOL/L (3.6-5.0); SODIUM 127 MMOL/L (135-145); TOTAL PROTEIN 9.5 GM/DL (6.4-8.2)
[2018-12-26] MEDS ORDERED: NS 100 ML (IVPB) BAG IV ONE (19:15)
[2018-12-26] MEDS ORDERED: IOHEXOL 350 MG/ML 100 ML (OMNIPAQUE 350) VIAL IV ONE (19:15)
--- NOTE | 2018-12-26 19:47 | Diagnostic Imaging Report ---
PROCEDURE: CT abdomen and pelvis with contrast. TECHNIQUE: Multiple contiguous axial images were obtained through the abdomen and pelvis after administration of intravenous contrast. INDICATION: Abdominal pain with nausea, vomiting, and weakness, as well as fever. Comparison made with prior examination from 11/27/2016. FINDINGS: The heart size is normal. The lung bases are clear. The liver is normal in size without focal lesions. Gallbladder is surgically absent. There is no biliary ductal dilatation. There is splenomegaly with the spleen measuring up to 20 cm. The pancreas and adrenal glands are unremarkable. Kidneys are normal in appearance. Aorta is nonaneurysmal. Bowel gas pattern is nonspecific. There is no free air. There is no ascites. There is some diverticular disease without evidence of diverticulitis. There is no pelvic mass, adenopathy, or free fluid. The osseous structures are unremarkable. IMPRESSION: Diverticular disease without evidence of diverticulitis. Splenomegaly. No other acute abnormality in the abdomen or pelvis. Dictated by: Dictated on workstation # [id number]
[2018-12-26 20:20] LABS: INR 1.1 (0.8-1.4); PROTHROMBIN TIME PATIENT 14.1 SEC (12.2-14.7)
[2018-12-26] MEDS ORDERED: RX-ONDANSETRON 4 MG ODT (ZOFRAN) PPK #4 PO STA (20:23)
[2018-12-26 20:42] VITALS: BP 112/68
[2018-12-28 06:12] LABS: HEPATITIS C ANTIBODY C Non-Reactive (Non-Reactive)
== END 2018-12-26 18:42 | disposition home or self-care (01) ==
LOC: EDUNIT# 17:54 → ER 17:55
DX: R11.2 Nausea with vomiting, unspecified (principal); R94.5 Abnormal results of liver function studies; E11.9 Type 2 diabetes mellitus without complications; J45.909 Unspecified asthma, uncomplicated; I11.0 Hypertensive heart disease with heart failure; I50.9 Heart failure, unspecified; K21.9 Gastro-esophageal reflux disease without esophagitis; F41.9 Anxiety disorder, unspecified; F20.9 Schizophrenia, unspecified; F32.9 Major depressive disorder, single episode, unspecified; Z87.448 Personal history of other diseases of urinary system; Z82.49 Family history of ischemic heart disease and other diseases of the circulatory system; Z90.89 Acquired absence of other organs; Z98.890 Other specified postprocedural states; Z79.51 Long term (current) use of inhaled steroids; Z88.7 Allergy status to serum and vaccine; Z88.8 Allergy status to other drugs, medicaments and biological substances
CPT/HCPCS: 36415; 71046; 74177; 80053; 80074; 80329; 81000; 83605; 83690; 83880; 84484; 85025; 85610; 86308; 87040; 93005; 96361; 96374

== ENCOUNTER → 2019-02-07 | Outpatient (CLI) | payer MEDICAID ==
[~2019-02-07] MED LIST changes: +SULF1TAB35 PO
== END ==
LOC: LAB 13:25
PROVIDERS: ATTEND Nurse Practitioner Primary Care
DX: K75.9 Inflammatory liver disease, unspecified (principal)
CPT/HCPCS: 36415; 86038; 86255

== ENCOUNTER → 2019-04-13 | Outpatient (CLI) | payer MEDICAID | LOC: CARD 10:24 | PROVIDERS: ATTEND Nurse Practitioner Primary Care | DX: I10 Essential (primary) hypertension (principal); Z86.79 Personal history of other diseases of the circulatory system; I07.1 Rheumatic tricuspid insufficiency | CPT/HCPCS: 93306 ==

== ENCOUNTER → 2019-07-05 | Outpatient (CLI) | payer MEDICAID ==
[~2019-07-05] MED LIST changes: +CATHETER FLUSH 10 ML SYR IV PRN; +REGADENOSON 0.4 MG/5 ML SYR (LEXISCAN) IV ONE
[2019-07-05 09:34] VITALS: BP 137/83
--- NOTE | 2019-07-05 18:50 | STRESS TEST ---
DATE OF SERVICE: 07/05/2019 LEXISCAN MYOVIEW STRESS TEST REPORT REFERRING PHYSICIAN: [facility]. Baseline heart rate is 68, baseline blood pressure 119/74. Baseline EKG is sinus rhythm with no ischemic changes. In summary, the patient was injected with 10.85 mCi of technetium-99 Myoview and the resting images were obtained. Then, the patient received 0.4 mg of Lexiscan followed by 29.4 mCi of technetium-99 Myoview. Throughout the test, there were no EKG changes. The resting and stress images were reviewed and compared in the short axis, horizontal long axis, and vertical long axis views. Review of the images showed breast attenuation with reversible ischemia involving the mid to apical anterior wall and anterolateral wall. SSS is 8, SDS 5, TID value 0.96. On the gated images, the left ventricle appeared to be normal size with normal contractility. Calculated ejection fraction 73%. CONCLUSION: 1. The patient tolerated Lexiscan well. 2. Reversible ischemia involving the mid to apical anterior wall and anterolateral wall. 3. Normal left ventricular size with normal contractility. Calculated ejection fraction 73%. Job ID: [id number] DocumentID: [id number] Dictated Date: 07/05/2019 15:49:51 Remarketing Rep Date: 07/05/2019 18:49:55 Dictated By: SHARON GARRETT MD
== END ==
LOC: CARD 07:51
PROVIDERS: ATTEND Internal Medicine Cardiovascular Disease
DX: E78.5 Hyperlipidemia, unspecified (principal); I10 Essential (primary) hypertension; R94.5 Abnormal results of liver function studies; R07.9 Chest pain, unspecified
CPT/HCPCS: 78452; 93017

== ENCOUNTER 2019-07-26 07:33 | Day surgery (SDC) | payer MEDICAID ==
[2019-07-26] VITALS (8 sets, daily range): BP systolic 99–137; BP diastolic 68–81
[~2019-07-26] VITALS: Ht 157.5 cm; Wt 90.5 kg
[~2019-07-26 07:33] MED LIST changes: -CATHETER FLUSH 10 ML SYR IV PRN; +HEParin (CATH LAB) 2,000 ML IV ONE; -LEVO25TA5; +LEVO25TA5 PO; +LIDOCAINE 1% INJ 20 ML 20 ML VIAL ONE; +NS IV 1000 ML 1,000 ML ONE; -REGADENOSON 0.4 MG/5 ML SYR (LEXISCAN) IV ONE
[2019-07-26] MEDS ORDERED: NS IV 1000 ML 1,000 ML IV SCH ×2 (07:45→09:34)
[2019-07-26 08:18] LABS: HEMOGLOBIN 14.6 G/DL (11.5-16.0); MEAN PLATELET VOLUME 10.6 FL (7.4-10.4); RED CELL DISTRIBUTION WIDTH 14.3 % (10.0-14.5); WHITE BLOOD COUNT 6.7 10^3/uL (4.3-11.0)
[2019-07-26 08:31] LABS: ALANINE AMINOTRANSFERASE 55 U/L (0-55); ALBUMIN 4.1 GM/DL (3.2-4.5); ALKALINE PHOSPHATASE 307 U/L (40-136); BILIRUBIN,TOTAL 0.7 MG/DL (0.1-1.0); BUN/CREATININE RATIO 20; CARBON DIOXIDE 20 MMOL/L (21-32); CHLORIDE 108 MMOL/L (98-107); CHOLESTEROL 293 MG/DL (< 200); CREATININE SERUM 0.74 MG/DL (0.60-1.30); GFR ESTIMATED > 60; GLUCOSE 112 MG/DL (70-105); HDL CHOLESTEROL 44 MG/DL (40-60); SODIUM 139 MMOL/L (135-145); TOTAL PROTEIN 9.2 GM/DL (6.4-8.2); TRIGLYCERIDES 255 MG/DL (<150); VLDL CHOLESTEROL 51 MG/DL (5-40)
--- NOTE | 2019-07-26 08:31 | Diagnostic Imaging Report ---
INDICATION: Abnormal stress test, coronary artery disease, chest pain. COMPARISON: 12/26/2018. TECHNIQUE: Single radiograph of the chest dated 07/26/2019. FINDINGS: The cardiac silhouette and pulmonary vasculature are within normal limits. The lungs are clear. No pleural effusion. No pneumothorax. No acute osseous abnormality. IMPRESSION: Stable examination without acute cardiopulmonary abnormality. Dictated by: Dictated on workstation # [id number]
[2019-07-26] MEDS ORDERED: VERAPAMIL 5 MG/2 ML (CALAN) VIAL IV ONE (08:35)
[2019-07-26] MEDS ORDERED: HEParin 1000 UNIT/ML (10ML VIAL) FOR BOLUS ONE (08:35)
[2019-07-26] MEDS ORDERED: NITRO DRIP 25000 MCG/D5W 250 ML IV ONE (08:35)
[2019-07-26] MEDS ORDERED: fentaNYL INJECTION 100 MCG/2 ML AMP ONE (08:35)
[2019-07-26] MEDS ORDERED: MIDAZOLAM 5 MG/5 ML (VERSED) VIAL ONE (08:35)
--- NOTE | 2019-07-26 09:01 | Cardiac Procedure Note-CS/ASA ---
Pre-Procedure Note Pre-Op Procedure Note H&P Reviewed The H&P was reviewed, patient examined and no changes noted. Date H&P Reviewed: Jul 26, 2019 Time H&P Reviewed: 09:01 Conscious Sedation Pre-Proced Time 09:01 ASA Score 3 For ASA 3 and 4: Consider anesthesia and medical clearance. Also, for patients with a history of failed moderate sedation consider anesthesia. Airway Lungs Heart ASA score ASA 1: a normal healthy patient ASA 2: a patient with a mild systemic disease (mid diabetes, controlled hypertension, obesity x ASA 3: a patient with a severe systemic disease that limits activity (angina, COPD, prior Myocardial infarction) ASA 4: a patient with an incapacitating disease that is a constant threat to life (CHF, renal failure) ASA 5: a moribund patient not expected to survive 24 hrs. (ruptured aneurysm) ASA 6: a declared brain- patient whose organs are being harvested. For emergent operations, add the letter E after the classification Mallampati Classification Grade 3 Sedation Plan Analgesia, Amnesia, Plan communicated to team members, Discussed options with patient/fam, Discussed risks with patient/fam The patient is an appropriate candidate to undergo the planned procedure, sedation, and anesthesia. The patient immediately re-assessed prior to indication. SHARON GARRETT MD Jul 26, 2019 09:01
[2019-07-26 09:07] LABS: PROTHROMBIN TIME PATIENT 13.1 SEC (12.2-14.7)
[2019-07-26] MEDS ORDERED: CETI10TA17 PO (09:30)
[2019-07-26] MEDS ORDERED: MONT10TA24 PO (09:30)
[2019-07-26] MEDS ORDERED: METO-395 PO (09:30)
[2019-07-26] MEDS ORDERED: CARI4.5C PO (09:36)
[2019-07-26] MEDS ORDERED: CHOL10003 PO (09:36)
[2019-07-26] MEDS ORDERED: RANI-613 PO (09:36)
[2019-07-26] MEDS ORDERED: TRAZ-222 PO (09:36)
[2019-07-26] MEDS ORDERED: GEMF600T8 PO (09:36)
[2019-07-26] MEDS ORDERED: URSO250T11 PO (09:36)
--- NOTE | 2019-07-26 09:40 | Cardiac Cath Report ---
Cardiac Cath Report Physician (s)/Chain Splitter (s) Physician SHARON GARRETT MD Pre-Procedure Diagnosis Pre-Procedure Diagnosis: coronary artery disease Post-Procedure Note Procedure Start Date: Jul 26, 2019 Name of Procedure: Left heart catheterization Findings/Procedure Note PROCEDURE NOTE: 54 years old lady with history of [id number] coronary artery disease, has been having chest pain, had an abnormal stress test, scheduled for cardiac catheterization possible PTCA. After explaining the procedure to the patient, all pros and cons were explained, all questions were answered. The patient signed the consent and then she was placed on the cardiac catheterization laboratory. Groin was prepped SL fashion local anesthesia was used. Sheath placed in the right radial artery, tiger catheter was used to advance to the left ventricular cavity pressure was measured pullback LV to aorta was done, advanced to the left coronary system, angina gram was done, I was unable to access the right system, I exchanged the catheter into JR catheter over a long J-wire, access the right coronary artery and angiogram was done. At the end of the procedure the sheath was removed. Vascular band was used FINDINGS: Hemodynamics LV 94/10, end-diastolic pressure of 10 Aorta 95/60 mean of 77 ANATOMY: Left Main is free of obstructive disease Left Anterior Descending is tortuous with mild disease nonobstructive disease Left Circumflex had mild ostial disease Right Coronary Artery has small disease at the midportion with mild ectasia LV Gram was not done, pressure was measured CONCLUSION: 1. Mild coronary artery disease with mild ectasia at the midright coronary artery nonobstructive disease 2. Normal left ventricular end-diastolic pressure DISCUSSION AND RECOMMENDATION: Medical therapy is recommended no intervention is needed Anesthesia Type: Conscious Sedation Estimated blood loss (mL): 10 ml Contrast Amount: 33 ml Total Radiation Dose: 282 mGy Post-Procedure Diagnosis Post-operative diagnosis: Chest pain Coronary artery disease Hypertension Hyperlipidemia SHARON GARRETT MD Jul 26, 2019 09:40
--- NOTE | 2019-07-26 09:41 | Discharge Inst-Post CATH ---
Discharge Inst-CATH/EP Problems Reviewed?: Yes Post Cardiac Cath/EP D/C Inst Follow Up/Plan Appointment with Dr. GARRETT's office in 2-4 weeks <b>CARDIAC CATH/EP PROCEDURE DISCHARGE INSTRUCTIONS</b> ACTIVITY * Go Home directly and rest. * Limit activity of the leg (or wrist if it was used) for 7 days including aerobics, swimming, jogging, bicycling, etc. * Restrict stair-climbing for 7 days if possible, if not, climb up with your non-cath leg, then bring together on the same step. * Avoid lifting, pushing, pulling or excessive movement of the affected extremity for 7 days. * Customary sexual activity may be resumed after 2 days-use caution not to use a position that strains or causes pain to the affected extremity. * No driving for 24 hours. * NO SMOKING. * Avoid straining for bowel movements for 7 days. * Gentle walking on level ground is allowed. * Returning to work will depend on the type of procedure and the results. Your doctor will discuss this with you. CALL YOUR DOCTOR FOR ANY OF THE FOLLOWING: *If bleeding from the puncture site occurs- Apply gentle pressure to site with clean cloth and call your doctor or EMS. * If a knot or lump forms under the skin, increases in size, or causes pain. * If bruising appears to be worsening or moving further down your leg instead of disappearing. * Temperature above 101 F. CARE OF YOUR GROIN INCISION; * Bruising or purple discoloration of the skin near the puncture site is common. * You may shower only, no bathtub bathing for 5 days. Be careful to avoid slipping as your leg may feel stiff. * If a closure device was used on your femoral artery, please see the attached guide regarding care of the device and your leg. * Leave dressing on FOR 24 hours. CARE OF YOUR WRIST INCISION; * Bruising or purple discoloration of the skin near the puncture site is common. * You may shower. * DO NOT submerge wrist. * Leave dressing on FOR 24 hours. SHARON GARRETT MD Jul 26, 2019 09:41
[2019-07-26] MEDS ORDERED: ATOR10TA PO (09:42)
--- NOTE | 2019-07-26 09:46 | NUR ---
PT WAS UNABLE TO LIST MEDS, SHE SAYS THAT GEORGE AT [facility] PACKS HER MEDS FOR HER. I CALLED MIKI VAZQUEZ TO COMPLETE THE MED REC. GEORGE WAS ABLE TO VERIFY ALL MEDICATIONS SHE IS CURRENTLY TAKING. OTC MEDS: VITAMIN D: 1 DAILY
== END 2019-07-26 12:30 | disposition home or self-care (01) ==
LOC: CATH 07:33 → SDC 09:55 → CATH 12:30
PROVIDERS: ATTEND Internal Medicine Cardiovascular Disease
DX: I25.10 Atherosclerotic heart disease of native coronary artery without angina pectoris (principal); R94.39 Abnormal result of other cardiovascular function study; E78.5 Hyperlipidemia, unspecified; I34.0 Nonrheumatic mitral (valve) insufficiency; K21.9 Gastro-esophageal reflux disease without esophagitis; J44.9 Chronic obstructive pulmonary disease, unspecified; I11.0 Hypertensive heart disease with heart failure; I50.9 Heart failure, unspecified; F60.0 Paranoid personality disorder; E66.01 Morbid (severe) obesity due to excess calories; Z68.36 Body mass index [BMI] 36.0-36.9, adult; Z88.2 Allergy status to sulfonamides; Z88.8 Allergy status to other drugs, medicaments and biological substances; Z88.7 Allergy status to serum and vaccine; Z79.899 Other long term (current) drug therapy; Z82.49 Family history of ischemic heart disease and other diseases of the circulatory system; Z82.61 Family history of arthritis; Z87.891 Personal history of nicotine dependence
CPT/HCPCS: 36415; 36430; 71045; 80053; 80061; 85027; 85610; 85730; 87081; 93458

== ENCOUNTER → 2019-10-24 | Outpatient (CLI) | payer MEDICAID ==
[~2019-10-24] MED LIST changes: +CARI4.5C PO; +CHOL10003 PO; +GEMF600T8 PO; -HEParin (CATH LAB) 2,000 ML IV ONE; -LIDOCAINE 1% INJ 20 ML 20 ML VIAL ONE; +METO-395 PO; +MONT10TA24 PO; -NS IV 1000 ML 1,000 ML ONE; +RANI-613 PO; +TRAZ-222 PO; +URSO250T11 PO
--- NOTE | 2019-10-24 12:16 | Diagnostic Imaging Report ---
PROCEDURE: US Hepatic (Liver). TECHNIQUE: Multiple real-time grayscale images were obtained over the right upper quadrant in various projections. INDICATION: Cirrhosis. FINDINGS: Portal vein is patent and shows a normal hepatopetal directional flow. Liver measures 20 cm. Its echotexture is homogeneous and normal. There is no identifiable mass. There is no intra or extrahepatic bile duct dilatation. The gallbladder is surgically absent. The visualized portions of the pancreas are unremarkable. The unobstructed right kidney is normal. IMPRESSION: Previous cholecystectomy, otherwise normal right upper quadrant ultrasound. Dictated by: Dictated on workstation # [id number]
== END ==
LOC: RAD 09:01
PROVIDERS: ATTEND Internal Medicine Gastroenterology
DX: K74.60 Unspecified cirrhosis of liver (principal); Z90.49 Acquired absence of other specified parts of digestive tract; Z98.890 Other specified postprocedural states
CPT/HCPCS: 76705

== ENCOUNTER 2019-11-16 15:57 | Emergency (ER) | payer MEDICAID ==
[~2019-11-16] VITALS: Ht 157.5 cm; Wt 94.1 kg
[~2019-11-16 15:57] MED LIST changes: -METO-395 PO; +MTP100TCR PO; +OMEP40CA27; -OMEP40CA36; -TRAZ-222 PO; +TRZ50T PO
[2019-11-16] MEDS ORDERED: NS IV 1000 ML 1,000 ML IV SCH (16:15)
[2019-11-16 16:21] LABS: BILIRUBIN,URINE NEGATIVE (NEGATIVE); CLARITY,URINE CLEAR; COLOR,URINE YELLOW; GLUCOSE, URINE (UA) NEGATIVE (NEGATIVE); KETONES,URINE NEGATIVE (NEGATIVE); LEUKOCYTE ESTERASE ,URINE TRACE (NEGATIVE); NITRITE,URINE NEGATIVE (NEGATIVE); PH,URINE 6.5 (5-9); PROTEIN,URINE NEGATIVE (NEGATIVE)
[2019-11-16 16:23] LABS: BASOPHILS % (AUTO) 0 % (0-10); EOSINOPHILS # (AUTO) 0.1 10^3/uL (0.0-0.3); EOSINOPHILS % (AUTO) 1 % (0-10); HEMATOCRIT 45 % (35-52); HEMOGLOBIN 14.8 G/DL (11.5-16.0); LYMPHOCYTES # (AUTO) 0.9 X 10^3 (1.0-4.0); LYMPHOCYTES % (AUTO) 13 % (12-44); MEAN CORPUSCULAR HEMOGLOBIN 30 PG (25-34); MEAN CORPUSCULAR HGB CONC 33 G/DL (32-36); MEAN CORPUSCULAR VOLUME 90 FL (80-99); MEAN PLATELET VOLUME 10.8 FL (7.4-10.4); MONOCYTES # (AUTO) 0.3 X 10^3 (0.0-1.0); MONOCYTES % (AUTO) 4 % (0-12); NEUTROPHILS # (AUTO) 5.8 X 10^3 (1.8-7.8); NEUTROPHILS % (AUTO) 82 % (42-75); PLATELET COUNT 204 10^3/uL (130-400); RED CELL DISTRIBUTION WIDTH 13.7 % (10.0-14.5)
[2019-11-16 16:31] LABS: BACTERIA,URINE TRACE /HPF
[2019-11-16 16:37] LABS: ALANINE AMINOTRANSFERASE 84 U/L (0-55); ALBUMIN 3.9 GM/DL (3.2-4.5); ALKALINE PHOSPHATASE 230 U/L (40-136); BILIRUBIN,TOTAL 0.9 MG/DL (0.1-1.0); BUN/CREATININE RATIO 22; CALCIUM 9.5 MG/DL (8.5-10.1); CARBON DIOXIDE 21 MMOL/L (21-32); CHLORIDE 106 MMOL/L (98-107); CREATININE SERUM 0.73 MG/DL (0.60-1.30); GFR ESTIMATED > 60; GLUCOSE 144 MG/DL (70-105); POTASSIUM 4.2 MMOL/L (3.6-5.0); SODIUM 137 MMOL/L (135-145); TOTAL PROTEIN 8.5 GM/DL (6.4-8.2)
--- NOTE | 2019-11-16 17:27 | ED Cough/URI ---
General Chief Complaint: Cough/Cold/Flu Symptoms Stated Complaint: NOT FEELING WELL Source: patient Exam Limitations: no limitations History of Present Illness Date Seen by Provider: Nov 16, 2019 Time Seen by Provider: 16:00 Allergies and Home Medications Allergies Coded Allergies: aripiprazole (Verified Allergy, Mild, 05/22/09) influenza virus vaccine, specific (Verified Allergy, Unknown, 12/29/13) sucralfate (Verified Allergy, Unknown, 12/29/13) Home Medications Atorvastatin Calcium 10 Mg Tablet, 10 MG PO DAILY Prescribed by: SHARON GARRETT on 07/26/19 0942 Cariprazine Hydrochloride 4.5 Mg Capsule, 4.5 MG PO DAILY, (Reported) Cetirizine HCl 10 Mg Tablet, 10 MG PO DAILY, (Reported) Cholecalciferol (Vitamin D3) 1,000 Unit Tablet, 1,000 UNIT PO DAILY, (Reported) Gemfibrozil 600 Mg Tablet, 600 MG PO BID, (Reported) Levothyroxine Sodium 25 Mcg Tablet, 25 MCG PO DAILY, (Reported) Metoprolol Succinate 100 Mg Tab.er.24h, 100 MG PO DAILY, (Reported) Montelukast Sodium 10 Mg Tablet, 10 MG PO HS, (Reported) [place]-3/Dha/Epa/Fish Oil 1 Each Capsule, 1,000 MG PO BID, (Reported) Ranitidine HCl 150 Mg Tablet, 150 MG PO HS, (Reported) Trazodone HCl 50 Mg Tablet, 50 MG PO HS, (Reported) Ursodiol 250 Mg Tablet, 750 MG PO BID, (Reported) Past Qqlzfqu-Sowugr-Rmjfpb Hx Patient Social History Alcohol Beverage of Choice: Other Former Smoker, Quit: Nov 08, 1979 2nd Hand Smoke Exposure: No Recent Foreign Travel: No Contact w/Someone Who Travel: No Recent Hopitalizations: No Immunizations Up To Date Tetanus Booster (TDap): Unknown Date of Pneumonia Vaccine: Nov 08, 2012 Seasonal Allergies Seasonal Allergies: No Past Medical History Surgeries: Yes (I&D AFTER MISCARRIAGE, HIATAL HERNIA SURGERY) Abdominal, Gallbladder, Tonsillectomy, Vascular Surgery Respiratory: Yes Asthma, Chronic Bronchitis Currently Using CPAP: No Currently Using BIPAP: No Cardiac: Yes (CHF HX) Hypertension Neurological: No Reproductive Disorders: No Female Reproductive Disorders: Menstrual Problems Kidney Infection, Bladder Infection Gastrointestinal: Yes Gastroesophageal Reflux Musculoskeletal: Yes Arthritis, Fractures Endocrine: Yes Diabetes, Non-Insulin dep Loss of Vision: Bilateral Hearing Impairment: Denies Cancer: No Psychosocial: Yes Anxiety, Schizophrenia, Depression Integumentary: No (HAS SKIN DISEASE NOT SURE BREAKS OUT ONCE IN A WHILE ) Blood Disorders: No Adverse Reaction/Blood Tranf: No Family Medical History Alcoholism Cancer Cataract Chest pain Congenital heart disease Congestive heart failure Dementia Family history: Allergy Family history: Alzheimer's disease Family history: Arthritis Family history: Asthma Family history: Cardiovascular disease Family history: Diabetes mellitus Family history: Glaucoma Family history: Hypertension Family history: Thyroid disorder Headache Heart disease History of - anemia History of - respiratory disease Kidney disease Myocardial infarction Psychotic disorder Stroke Visual impairment No Family History of: Abdominal aortic aneurysm Govind's disease Aphasia Cystic fibrosis Dysphagia Family history: Breast disease Family history: Coronary thrombosis Family history: Gastrointestinal disease Family history: Osteoporosis Hearing loss Hereditary disease History of - disorder History of drug abuse Human immunodeficiency virus (HIV) seropositivity Hypercholesterolemia Infertile Malignant neoplasm of lung Parkinson's disease Prostate cancer Seizure disorder Tuberculosis Heart Disease Physical Exam Capillary Refill : Height: 5'2.00" Weight: 188lbs. 0.0oz. 85.385102mi; 36.48 BMI Method:Stated Progress/Results/Core Measures Suspected Sepsis SIRS Temperature: Pulse: Respiratory Rate: Laboratory Tests 11/16/19 16:07: White Blood Count 7.0 Blood Pressure / Mean: Laboratory Tests 11/16/19 16:07: Creatinine 0.73, Platelet Count 204, Total Bilirubin 0.9 Results/Orders Lab Results Laboratory Tests Test 11/16/19 16:07 11/16/19 16:13 Range/Units White Blood Count 7.0 4.3-11.0 10^3/uL Red Blood Count 5.00 4.35-5.85 10^6/uL Hemoglobin 14.8 11.5-16.0 G/DL Hematocrit 45 35-52 % Mean Corpuscular Volume 90 80-99 FL Mean Corpuscular Hemoglobin 30 25-34 PG Mean Corpuscular Hemoglobin Concent 33 32-36 G/DL Red Cell Distribution Width 13.7 10.0-14.5 % Platelet Count 204 130-400 10^3/uL Mean Platelet Volume 10.8 H 7.4-10.4 FL Neutrophils (%) (Auto) 82 H 42-75 % Lymphocytes (%) (Auto) 13 12-44 % Monocytes (%) (Auto) 4 0-12 % Eosinophils (%) (Auto) 1 0-10 % Basophils (%) (Auto) 0 0-10 % Neutrophils # (Auto) 5.8 1.8-7.8 X 10^3 Lymphocytes # (Auto) 0.9 L 1.0-4.0 X 10^3 Monocytes # (Auto) 0.3 0.0-1.0 X 10^3 Eosinophils # (Auto) 0.1 0.0-0.3 10^3/uL Basophils # (Auto) 0.0 0.0-0.1 10^3/uL Sodium Level 137 135-145 MMOL/L Potassium Level 4.2 3.6-5.0 MMOL/L Chloride Level 106 98-107 MMOL/L Carbon Dioxide Level 21 21-32 MMOL/L Anion Gap 10 5-14 MMOL/L Blood Urea Nitrogen 16 7-18 MG/DL Creatinine 0.73 0.60-1.30 MG/DL Estimat Glomerular Filtration Rate > 60 BUN/Creatinine Ratio 22 Glucose Level 144 H 70-105 MG/DL Calcium Level 9.5 8.5-10.1 MG/DL Corrected Calcium 9.6 8.5-10.1 MG/DL Total Bilirubin 0.9 0.1-1.0 MG/DL Aspartate Amino Transf (AST/SGOT) 65 H 5-34 U/L Alanine Aminotransferase (ALT/SGPT) 84 H 0-55 U/L Alkaline Phosphatase 230 H 40-136 U/L Total Protein 8.5 H 6.4-8.2 GM/DL Albumin 3.9 3.2-4.5 GM/DL Urine Color YELLOW Urine Clarity CLEAR Urine pH 6.5 5-9 Urine Specific [place] 1.015 L 1.016-1.022 Urine Protein NEGATIVE NEGATIVE Urine Glucose (UA) NEGATIVE NEGATIVE Urine Ketones NEGATIVE NEGATIVE Urine Nitrite NEGATIVE NEGATIVE Urine Bilirubin NEGATIVE NEGATIVE Urine Urobilinogen 1.0 < = 1.0 MG/DL Urine Leukocyte Esterase TRACE NEGATIVE Urine RBC (Auto) NEGATIVE NEGATIVE Urine RBC NONE /HPF Urine WBC 2-5 /HPF Urine Squamous Epithelial Cells 2-5 /HPF Urine Crystals NONE /LPF Urine Bacteria TRACE /HPF Urine Casts NONE /LPF Urine Mucus NEGATIVE /LPF Urine Culture Indicated YES Micro Results Microbiology 11/16/19 Influenza Types A,B Antigen (ADELA) - Final, Complete My Orders Orders - LATRICE KO Influenza A And B Antigens (1/9/20 16:06) Comprehensive Metabolic Panel (11/16/19 16:06) Ua Culture If Indicated (11/16/19 16:06) Ed Iv/Invasive Line Start (11/16/19 16:06) Cbc With Automated Diff (11/16/19 16:06) Ns Iv 1000 Ml (Sodium Chloride 0.9%) (11/16/19 16:15) Urine Culture (11/16/19 16:13) Vital Signs/I&O Capillary Refill : Departure Impression Primary Impression: Influenza-like symptoms Disposition: HOME, SELF-CARE Condition: Stable/Unchanged Departure-Patient Inst. Decision time for Depature: 17:17 Referrals: SIOBHAN STARR APRN (PCP/Family) Primary Care Physician Patient Instructions: Flu, Adult (DC) Add. Discharge Instructions: Drink plenty of fluids to stay hydrated. You may use ibuprofen as needed for pain and fever. Call tomorrow to schedule an appointment [facility] for follow-up. Return back to the emergency room for worsening symptoms or concerns as needed. All discharge instructions reviewed with patient and/or family. Voiced understanding. LATRICE KO Nov 16, 2019 17:27
[2019-11-16] MEDS ORDERED: KETOROLAC 30 MG/ML VIAL IVP ONE (17:30)
[2019-11-16 17:54] VITALS: BP 106/66
== END 2019-11-16 17:54 | disposition home or self-care (01) ==
LOC: EDUNIT# 15:57 → ER 15:59
DX: R09.89 Other specified symptoms and signs involving the circulatory and respiratory systems (principal); J45.909 Unspecified asthma, uncomplicated; I10 Essential (primary) hypertension; E11.9 Type 2 diabetes mellitus without complications; F41.9 Anxiety disorder, unspecified; F20.9 Schizophrenia, unspecified; F32.9 Major depressive disorder, single episode, unspecified; K21.9 Gastro-esophageal reflux disease without esophagitis; Z88.8 Allergy status to other drugs, medicaments and biological substances; Z87.891 Personal history of nicotine dependence; Z90.89 Acquired absence of other organs; Z82.49 Family history of ischemic heart disease and other diseases of the circulatory system
CPT/HCPCS: 36415; 80053; 81000; 85025; 87088; 87804; 96361; 96365

== ENCOUNTER → 2020-01-23 | Outpatient (CLI) | payer MEDICAID ==
--- NOTE | 2020-01-19 13:52 | NUR ---
PT SCHEDULED FOR PULMONARY REHAB EVALUATION; LOOKED UP FILE TO SEE IF CURRENT PFT IN RECORDS (FOR EVAL), AND TO GET MAILING ADDRESS TO SEND PAPERWORK.
[~2020-01-23] MED LIST changes: -MONT10TA24 PO; +MONT10TA26 PO
--- NOTE | 2020-01-23 17:18 | Diagnostic Imaging Report ---
INDICATION: Routine screening. Comparison is made with prior mammograms from 07/29/2016 and 04/08/2015. 2-D and 3-D bilateral screening mammography was performed. The current study was also evaluated with a Computer Aided Detection (CAD) system. 3-D tomosynthesis was also performed and reviewed. FINDINGS: Scattered fibroglandular densities are identified bilaterally. Fibronodular parenchymal pattern appears stable. There are scattered benign calcifications. No dominant mass or malignant-appearing microcalcifications are seen. Axillae are unremarkable. IMPRESSION: No mammographic features suspicious for malignancy are identified. ACR BI-RADS Category 2: Benign findings. Result letter will be mailed to the patient. Note: At least 10% of breast cancer is not imaged by mammography. Dictated by: Dictated on workstation # [id number]
== END ==
LOC: RAD 14:34
PROVIDERS: ATTEND Nurse Practitioner Primary Care
DX: Z12.31 Encounter for screening mammogram for malignant neoplasm of breast (principal)
CPT/HCPCS: 77067

== ENCOUNTER → 2021-07-11 | Outpatient (CLI) | payer MEDICAID ==
[~2021-07-11] MED LIST changes: -GEMF600T8 PO; +GEMF600T88 PO; -MONT10TA26 PO; +MONT10TA32 PO; -OMEP40CA27; +OMEP40CA6; -SULF1TAB35 PO; +SULF1TAB38 PO; -URSO250T11 PO; +URSO250T12 PO
--- NOTE | 2021-07-11 13:16 | Diagnostic Imaging Report ---
INDICATION: Routine screening. COMPARISON is made with prior mammogram from 01/23/2020 and 07/29/2016. 2-D and 3-D bilateral screening mammography was performed with CAD. Scattered fibroglandular densities are identified bilaterally. The fibronodular parenchymal pattern appears to be stable. There are scattered benign calcifications. No spiculated mass or malignant-appearing microcalcifications are seen. Axillae are unremarkable. IMPRESSION: BI-RADS Category 2 No mammographic features suspicious for malignancy are identified. ACR BI-RADS Category 2: Benign findings. Result letter will be mailed to the patient. Note: At least 10% of breast cancer is not imaged by mammography. Dictated by: Dictated on workstation # [id number]
== END ==
LOC: RAD 11:03
PROVIDERS: ATTEND Nurse Practitioner
DX: Z12.31 Encounter for screening mammogram for malignant neoplasm of breast (principal)
CPT/HCPCS: 77063; 77067

== ENCOUNTER 2022-01-17 18:10 | Emergency (ER) | payer MEDICAID ==
[~2022-01-17] VITALS: Ht 157 cm; Wt 99.7 kg
[~2022-01-17 18:10] MED LIST changes: +MONT-40 PO; -MONT10TA32 PO
--- NOTE | 2022-01-17 18:48 | ED Integumentary General ---
General Chief Complaint: Bite-Animal/Human/Insect Stated Complaint: L LEG UPPER BACK THIGH SPIDER BITE Nursing Triage Note: PT PRESENTS TO ED WITH COMPLAINTS OF SPIDER BITE TO L THIGH 3 WEEKS AGO. PT REPORTS THEY SWITCHED HER ANTIBIOTIC 2 WEEKS AGO. PT REPORTS SHE HAS INCREASED DIZZINESS, SANON, CHILLS, AND LIGHTHEADEDNESS. Source: patient Exam Limitations: no limitations History of Present Illness Date Seen by Provider: Jan 17, 2022 Time Seen by Provider: 18:28 Initial Comments Here with report of spider bite to the left upper thigh has been going on for a few weeks. Notes that there is more of an ulceration now and she is concerned about healing. States that she is tired of feeling bad. Recently started on cephalexin. She has been following with her provider. She has not seen wound care. She was concerned there may be some of the reaction going on. She reports that she had another one closer to the groin but that seems to be healin g. She does have underlying anxiety and is worried about the wound and how its reacting to her. No noted fever. Denies dysuria or difficulty going to the bathroom Timing/Duration: constant, other (3 weeks) Severity: moderate Location: extremities (Left upper thigh) Possible Cause: insect bite Associated Symptoms: other (Ulcer) Allergies and Home Medications Allergies Coded Allergies: aripiprazole (Verified Allergy, Mild, 05/22/09) influenza virus vaccine, specific (Verified Allergy, Unknown, 12/29/13) sucralfate (Verified Allergy, Unknown, 12/29/13) Patient Home Medication List Home Medication List Reviewed: Yes Atorvastatin Calcium (Lipitor) 10 Mg Tablet, 10 MG PO DAILY Prescribed by: SHARON GARRETT on 07/26/19 09 Cariprazine Hydrochloride (Vraylar) 4.5 Mg Capsule, 4.5 MG PO DAILY, (Reported) Entered as Reported by: VIOLET JAVIER on 07/26/19935 Cetirizine HCl (Cetirizine HCl) 10 Mg Tablet, 10 MG PO DAILY, (Reported) Entered as Reported by: VIOLET JAVIER on 07/26/19929 Cholecalciferol (Vitamin D3) (Vitamin D3) 1,000 Unit Tablet, 1,000 UNIT PO DAILY, (Reported) Entered as Reported by: VIOLET JAVIER on 07/26/19935 Gemfibrozil (Gemfibrozil) 600 Mg Tablet, 600 MG PO BID, (Reported) Entered as Reported by: VIOLET JAVIER on 07/26/19935 Levothyroxine Sodium (Levothyroxine Sodium) 25 Mcg Tablet, 25 MCG PO DAILY, (Reported) Entered as Reported by: LASHAWN PARR on 06/08/17 0351 Metoprolol Succinate (Metoprolol Succinate) 100 Mg Tab.er.24h, 100 MG PO DAILY, (Reported) Entered as Reported by: VIOLET JAVIER on 07/26/19 09 Montelukast Sodium (Montelukast Sodium) 10 Mg Tablet, 10 MG PO HS, (Reported) Entered as Reported by: VIOLET JAVIER on 07/26/19929 [place]-3/Dha/Epa/Fish Oil (Fish Oil 1,000 mg Softgel) 1 Each Capsule, 1,000 MG PO BID, (Reported) Entered as Reported by: CHRISTINA REBOLLAR on 08/05/15 0841 Ranitidine HCl (Zantac) 150 Mg Tablet, 150 MG PO HS, (Reported) Entered as Reported by: VIOLET JAVIER on 07/26/19935 Trazodone HCl (Trazodone HCl) 50 Mg Tablet, 50 MG PO HS, (Reported) Entered as Reported by: VIOLET JAVIER on 07/26/19935 Ursodiol (Ursodiol) 250 Mg Tablet, 750 MG PO BID, (Reported) Entered as Reported by: VIOLET JAVIER on 07/26/19935 Review of Systems Review of Systems Constitutional: see HPI, chills; No fever Respiratory: No cough, No short of breath Cardiovascular: no symptoms reported Gastrointestinal: No abdominal pain, No nausea, No vomiting Genitourinary: no symptoms reported Musculoskeletal: no symptoms reported Skin: change in color, lesions Psychiatric/Neurological: Anxiety; Denies Weakness Past Fwbpvhe-Owrrnj-Vciiti Hx Patient Social History Tobacco Use?: No Substance use?: No Alcohol Use?: No Pt feels they are or have been: No Immunizations Up To Date Tetanus Booster (TDap): Unknown Seasonal Allergies Seasonal Allergies: No Past Medical History Surgeries: Yes (I&D AFTER MISCARRIAGE, HIATAL HERNIA SURGERY) Abdominal, Gallbladder, Tonsillectomy, Vascular Surgery Respiratory: Yes Asthma, Chronic Bronchitis Currently Using CPAP: No Currently Using BIPAP: No Cardiac: Yes (CHF HX) Hypertension Neurological: No Reproductive Disorders: No Female Reproductive Disorders: Menstrual Problems Kidney Infection, Bladder Infection Gastrointestinal: Yes Gastroesophageal Reflux Musculoskeletal: Yes Arthritis, Fractures Endocrine: Yes (thyroid) Diabetes, Non-Insulin dep Loss of Vision: Bilateral Hearing Impairment: Denies Cancer: No Psychosocial: Yes Anxiety, Schizophrenia, Depression Integumentary: No (HAS SKIN DISEASE NOT SURE BREAKS OUT ONCE IN A WHILE ) Blood Disorders: No Adverse Reaction/Blood Tranf: No Family Medical History Alcoholism Cancer Cataract Chest pain Congenital heart disease Congestive heart failure Dementia Family history: Allergy Family history: Alzheimer's disease Family history: Arthritis Family history: Asthma Family history: Cardiovascular disease Family history: Diabetes mellitus Family history: Glaucoma Family history: Hypertension Family history: Thyroid disorder Headache Heart disease History of - anemia History of - respiratory disease Kidney disease Myocardial infarction Psychotic disorder Stroke Visual impairment No Family History of: Abdominal aortic aneurysm [place]'s disease Aphasia Cystic fibrosis Dysphagia Family history: Breast disease Family history: Coronary thrombosis Family history: Gastrointestinal disease Family history: Osteoporosis Hearing loss Hereditary disease History of - disorder History of drug abuse Human immunodeficiency virus (HIV) seropositivity Hypercholesterolemia Infertile Malignant neoplasm of lung Parkinson's disease Prostate cancer Seizure disorder Tuberculosis Heart Disease Physical Exam Vital Signs Vital Signs - First Documented 01/17/22 18:27 Temp 35.4 Pulse 66 Resp 18 B/P (MAP) 162/83 (109) Pulse Ox 98 Capillary Refill : Less Than 3 Seconds General Appearance: WD/WN, no apparent distress, obese Cardiovascular: regular rate, rhythm, no murmur Respiratory: lungs clear, normal breath sounds Gastrointestinal: non tender, soft Neurologic/Psychiatric: alert, oriented x 3 Skin: warm/dry Skin Problem Location: lower extremities Skin Problem Character: other (1.5 x 1.5 cm ulcerative lesion to the left mid upper outer thigh posterior aspect consistent with brown recluse spider bite. Wound edges are pink without significant surrounding erythema and no rash, bruising or other lesions noted.) Progress/Results/Core Measures Results/Orders Lab Results Laboratory Tests Test 01/17/22 19:05 Range/Units White Blood Count 5.8 4.3-11.0 10^3/uL Red Blood Count 4.73 3.80-5.11 10^6/uL Hemoglobin 14.0 11.5-16.0 g/dL Hematocrit 43 35-52 % Mean Corpuscular Volume 91 80-99 fL Mean Corpuscular Hemoglobin 30 25-34 pg Mean Corpuscular Hemoglobin Concent 33 32-36 g/dL Red Cell Distribution Width 12.7 10.0-14.5 % Platelet Count 180 130-400 10^3/uL Mean Platelet Volume 11.6 9.0-12.2 fL Immature Granulocyte % (Auto) 1 % Neutrophils (%) (Auto) 62 42-75 % Lymphocytes (%) (Auto) 28 12-44 % Monocytes (%) (Auto) 7 0-12 % Eosinophils (%) (Auto) 2 0-10 % Basophils (%) (Auto) 1 0-10 % Neutrophils # (Auto) 3.6 1.8-7.8 10^3/uL Lymphocytes # (Auto) 1.6 1.0-4.0 10^3/uL Monocytes # (Auto) 0.4 0.0-1.0 10^3/uL Eosinophils # (Auto) 0.1 0.0-0.3 10^3/uL Basophils # (Auto) 0.0 0.0-0.1 10^3/uL Immature Granulocyte # (Auto) 0.0 0.0-0.1 10^3/uL My Orders Orders - MORENA CARTER MD Cbc With Automated Diff (01/17/22 18:36) Vital Signs/I&O 01/17/22 18:27 Temp 35.4 Pulse 66 Resp 18 B/P (MAP) 162/83 (109) Pulse Ox 98 Blood Pressure Mean: 109 Progress Progress Note : Progress Note Seen and evaluated. Given constitutional symptoms, we will go ahead and check CBC to rule out hemolysis syndrome. I did give her information on wound care schedule for appointment. I think she would benefit from wound care therapy to help heal this wound. Monitor patient. 191: CBC is normal with normal hemoglobin. Discharged home with return precautions. Patient and care attendan t verbalized understanding instructions and agreement with plan. Departure Impression Primary Impression: Brown recluse spider bite Qualified Codes: T63.334A - Toxic effect of venom of brown recluse spider, undetermined, initial encounter Disposition: 01 HOME, SELF-CARE Condition: Stable Departure-Patient Inst. Decision time for Depature: 18:51 Referrals: [facility] [place] Primary Care Physician TAIWO CASTRO (Family) Primary Care Physician Patient Instructions: Insect Bites and Stings (DC), Spider Bites, Wound Care ED Add. Discharge Instructions: All discharge instructions reviewed with patient and/or family. Voiced understanding. Call the wound care clinic at the phone number provided on Wednesday morning for appointment scheduling and follow-up after ED visit for brown recluse spider bite with ulceration to the left leg. Continue local wound care as previously prescribed. You can continue antibiotics as previously prescribed. Follow-up with your doctor this week for recheck and further evaluation as needed. Return for worse pain, fever, vomiting, weakness, breathing problems or other concerns as needed. MORENA CARTER MD Jan 17, 2022 18:48
[2022-01-17 19:10] LABS: BASOPHILS % (AUTO) 1 % (0-10); EOSINOPHILS # (AUTO) 0.1 10^3/uL (0.0-0.3); EOSINOPHILS % (AUTO) 2 % (0-10); HEMATOCRIT 43 % (35-52); LYMPHOCYTES # (AUTO) 1.6 10^3/uL (1.0-4.0); LYMPHOCYTES % (AUTO) 28 % (12-44); MEAN CORPUSCULAR HEMOGLOBIN 30 pg (25-34); MEAN CORPUSCULAR HGB CONC 33 g/dL (32-36); MEAN CORPUSCULAR VOLUME 91 fL (80-99); MEAN PLATELET VOLUME 11.6 fL (9.0-12.2); MONOCYTES # (AUTO) 0.4 10^3/uL (0.0-1.0); MONOCYTES % (AUTO) 7 % (0-12); NEUTROPHILS # (AUTO) 3.6 10^3/uL (1.8-7.8); NEUTROPHILS % (AUTO) 62 % (42-75); PLATELET COUNT 180 10^3/uL (130-400); WHITE BLOOD COUNT 5.8 10^3/uL (4.3-11.0)
[2022-01-17 19:21] VITALS: BP 158/83
== END 2022-01-17 19:24 | disposition home or self-care (01) ==
LOC: EDUNIT# 18:10 → ER 18:12
DX: T63.331A Toxic effect of venom of brown recluse spider, accidental (unintentional), initial encounter (principal); E66.9 Obesity, unspecified
CPT/HCPCS: 36415; 85025

== ENCOUNTER → 2022-01-22 | Outpatient (CLI) | payer MEDICAID ==
[2022-01-22 13:50] LABS: ALBUMIN 3.7 GM/DL (3.2-4.5); POTASSIUM 4.1 MMOL/L (3.6-5.0)
[2022-01-22 13:52] LABS: CALCIUM 10.1 MG/DL (8.5-10.1)
[2022-01-22 13:53] LABS: TOTAL PROTEIN 7.9 GM/DL (6.4-8.2)
[2022-01-22 13:55] LABS: BILIRUBIN,TOTAL 2.6 MG/DL (0.1-1.0)
[2022-01-22 13:56] LABS: CREATININE SERUM 1.01 MG/DL (0.60-1.30)
== END ==
LOC: LAB 13:18
PROVIDERS: ATTEND Family Medicine
DX: E11.622 Type 2 diabetes mellitus with other skin ulcer (principal); E11.65 Type 2 diabetes mellitus with hyperglycemia; L97.122 Non-pressure chronic ulcer of left thigh with fat layer exposed; L03.116 Cellulitis of left lower limb; E66.01 Morbid (severe) obesity due to excess calories
CPT/HCPCS: 36415; 80053; 83036

== ENCOUNTER → 2022-01-22 | Outpatient (CLI) | payer MEDICAID | LOC: WOUNDCARE 12:22 | PROVIDERS: ATTEND Family Medicine | DX: L97.122 Non-pressure chronic ulcer of left thigh with fat layer exposed (principal); L03.116 Cellulitis of left lower limb; E11.622 Type 2 diabetes mellitus with other skin ulcer; E11.65 Type 2 diabetes mellitus with hyperglycemia; E66.01 Morbid (severe) obesity due to excess calories | CPT/HCPCS: 11042; 87070; 87077; 87205; A6197; G0463 ==

== ENCOUNTER → 2022-01-28 | Outpatient (CLI) | payer MEDICAID | LOC: WOUNDCARE 12:51 | PROVIDERS: ATTEND Family Medicine | DX: L97.122 Non-pressure chronic ulcer of left thigh with fat layer exposed (principal); E11.622 Type 2 diabetes mellitus with other skin ulcer; E11.65 Type 2 diabetes mellitus with hyperglycemia; E66.01 Morbid (severe) obesity due to excess calories; E11.52 Type 2 diabetes mellitus with diabetic peripheral angiopathy with gangrene | CPT/HCPCS: 11042; G0463 ==

== ENCOUNTER → 2022-02-04 | Outpatient (CLI) | payer MEDICAID | LOC: WOUNDCARE 14:01 | PROVIDERS: ATTEND Family Medicine | DX: E11.622 Type 2 diabetes mellitus with other skin ulcer (principal); E11.65 Type 2 diabetes mellitus with hyperglycemia; L97.122 Non-pressure chronic ulcer of left thigh with fat layer exposed; E11.52 Type 2 diabetes mellitus with diabetic peripheral angiopathy with gangrene; E66.01 Morbid (severe) obesity due to excess calories; Z68.38 Body mass index [BMI] 38.0-38.9, adult | CPT/HCPCS: 11042; G0463 ==

== ENCOUNTER → 2022-02-11 | Outpatient (CLI) | payer MEDICAID | LOC: WOUNDCARE 13:32 | PROVIDERS: ATTEND Family Medicine | DX: E11.622 Type 2 diabetes mellitus with other skin ulcer (principal); L97.112 Non-pressure chronic ulcer of right thigh with fat layer exposed; E11.65 Type 2 diabetes mellitus with hyperglycemia; E66.01 Morbid (severe) obesity due to excess calories | CPT/HCPCS: 99212 ==